=== PATIENT | male | born 1955 ===

== ENCOUNTER 2016-10-04 17:18 | Emergency (ER) | payer BC ==
[2016-10-04 17:18] VITALS: BMI 29.8
[2016-10-04 17:24] VITALS: TEMP 98.3
[2016-10-04] MEDS ORDERED: Vancomycin 1gm in NS 250ml 1 GM/250 ML BAG IVPB STA (17:55)
--- NOTE | 2016-10-04 17:55 | ED PDOC ---
Arrival/HPI - General Chief Complaint: Abnormal Skin Integrity Time Seen by Provider: 10/04/16 17:34 Historian: Patient - History of Present Illness Narrative History of Present Illness (Text): 61 M with pmh of non insulin dependant DM presents with abdominal skin infection. Pt states that he first noticed it around 10 days ago when he was at work and it was itching. 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 It than got infected. He states that it is now red, warm to touch and very painful. He denies any drainage from it. He states that this happened once before in the back of his head. He denies any headache, dizziness, f/c, sob , cp, palpitations, abd pain, n/v/d, urinary or bm changes. Time/Duration: 1 week Quality: Aching Severity Level: 7 Past Medical History - Provider Review Nursing Documentation Reviewed: Yes - Past History Past History: Non-Contributing - Infectious Disease Hx of Infectious Diseases: None - Cardiac Hx Hypertension: Yes - Pulmonary Hx Respiratory Disorders: No - Neurological Hx Neurological Disorder: No - HEENT Hx HEENT Disorder: No - Renal Hx Renal Disorder: No - Endocrine/Metabolic Hx Diabetes Mellitus Type 2: Yes (takes pills) - Hematological/Oncological Hx Blood Disorders: No - Integumentary Hx Dermatological Disorder: No - Musculoskeletal/Rheumatological Hx Musculoskeletal Disorders: No - Gastrointestinal Hx Gastrointestinal Disorders: No - Genitourinary/Gynecological Hx Genitourinary Disorders: No - Psychiatric Hx Psychophysiologic Disorder: No Hx Substance Use: No - Surgical History Hx Orthopedic Surgery: Yes (pin right leg) Other/Comment: right leg surgery with pins - Anesthesia Hx Anesthesia: Yes Hx Anesthesia Reactions: No Hx Malignant Hyperthermia: No Family/Social History - Physician Review Nursing Documentation Reviewed: Yes Family/Social History: No Known Family HX Smoking Status: Never Smoked Hx Alcohol Use: No Hx Substance Use: No Allergies/Home Meds Allergies/Adverse Reactions: Allergies No Known Allergies Allergy (Verified 05/24/15 19:48) Home Medications: Home Meds Medication Instructions Recorded Confirmed MetFORMIN [glucOPHAGE] 1,000 mg PO DAILY 10/04/16 10/04/16 Review of Systems - Physician Review All systems were reviewed & negative as marked: Yes - Review of Systems Constitutional: absent: Fevers, Night Sweats Eyes: absent: Vision Changes ENT: absent: Hearing Changes Respiratory: absent: SOB, Cough, Wheezing Cardiovascular: absent: Chest Pain, Palpitations Gastrointestinal: absent: Abdominal Pain, Diarrhea, Nausea, Vomiting Genitourinary Male: absent: Dysuria, Frequency Musculoskeletal: absent: Arthralgias, Myalgias Skin: Abscess, Cellulitis Neurological: absent: Headache, Dizziness Hemo/Lymphatic: absent: Easy Bleeding Psychiatric: absent: Anxiety, Depression Physical Exam Vital Signs Temp Pulse Resp BP Pulse Ox 10/04/16 17:23 98.3 F 103 H 16 170/105 H 99 Temperature: Afebrile Blood Pressure: Hypertensive Pulse: Tachycardic Appearance: Positive for: Well-Appearing, Non-Toxic, Comfortable Pain Distress: None Mental Status: Positive for: Alert and Oriented X 3 - Systems Exam Head: Present: Atraumatic, Normocephalic Pupils: Present: PERRL Extroacular Muscles: Present: EOMI Mouth: Present: Moist Mucous Membranes Neck: Present: Normal Range of Motion Respiratory/Chest: Present: Clear to Auscultation, Good Air Exchange. No: Respiratory Distress, Accessory Muscle Use, Wheezes Cardiovascular: Present: Regular Rate and Rhythm, Normal S1, S2. No: Murmurs Abdomen: Present: Normal Bowel Sounds. No: Tenderness, Distention, Peritoneal Signs Upper Extremity: Present: Normal Inspection. No: Cyanosis, Edema Lower Extremity: Present: Normal Inspection. No: Edema, CALF TENDERNESS Neurological: Present: GCS=15, CN II-XII Intact, Speech Normal Skin: Present: Erythematous, Induration, Abscess, Other (Anterir abd wall: 4x3cm Erythmatous, warm to touch, indurated, not fluctuant ) Psychiatric: Present: Alert, Oriented x 3, Normal Insight, Normal Concentration Medical Decision Making ED Course and Treatment: 10/04/16 18:06 Impression: 61 M with pmh of diabetes presents to the ED with anterior wall cellulites. Differential Diagnosis included but are not limited to: Cellulites Plan: - Blood sugar of 180 - 1 gram Vancomycin STAT - Outpatient antibiotics clinda & keflex and follow up with primary care tomorrow morning. -- Reassess and disposition Prior Visits: Notes and results from previous visits were reviewed. Progress Notes: - Patient hemodynamically stable and non febrile. 10/04/16 18:40 Reassessment Condition: Improving,but remains with symptoms - Medication Orders Current Medication Orders: Vancomycin HCl (Vancomycin 1gm) 1 gm in 250 mls @ 167 mls/hr IVPB STAT STA PRN Reason: Protocol Stop: 10/04/16 19:24 - PA / ACCORDION REPAIRER / Resident Statement / has reviewed & agrees with the documentation as recorded. / has examined the patient and agrees with the treatment plan. Disposition/Present on Arrival - Present on Arrival Any Indicators Present on Arrival: No History of DVT/PE: No History of Uncontrolled Diabetes: No Urinary Catheter: No History of Decub. Ulcer: No History Surgical Site Infection Following: None - Disposition Have Diagnosis and Disposition been Completed?: Yes Diagnosis: Cellulitis Disposition: HOME/ ROUTINE Disposition Time: 18:35 Patient Plan: Discharge Patient Problems: Current Active Problems Problem Status Onset Cellulitis Acute Condition: GOOD Discharge Instructions (ExitCare): Cellulitis (ED) Additional Instructions: Thank you for letting us take care of you today. Your provider was Dr. Randolph. You were treated for cellulitis. The emergency medical care you received today was directed at your acute symptoms. If you were prescribed any medication, please fill it and take as directed. It may take several days for your symptoms to resolve. Return to the Emergency Department if your symptoms worsen, do not improve, or if you have any other problems. Please contact your doctor or call one of the physicians/clinics you have been referred to that are listed on the Patient Visit Information form that is included in your discharge packet. Bring any paperwork you were given at discharge with you along with any medications you are taking to your follow up visit. Our treatment cannot replace ongoing medical care by a primary care provider (PCP) outside of the emergency department. [facility]. Follow up with your doctor tomorrow morning for re-evaluation. Prescriptions: Cephalexin [cephalexin] 500 mg PO QID #28 cap Clindamycin [Cleocin] 300 mg PO Q6 #28 cap Referrals: Luly Weathers, [Primary Care Provider] - Follow up with primary
[2016-10-04 20:27] VITALS: BP 169/100; PULSE 92; RESP 16; O2SAT 97
== END 2016-10-04 20:34 | disposition home or self-care (01) ==
LOC: ED 17:18
DX: L03.311 Cellulitis of abdominal wall (principal); E11.9 Type 2 diabetes mellitus without complications; Z79.84 Long term (current) use of oral hypoglycemic drugs

== ENCOUNTER 2018-07-28 12:37 | Inpatient (IN) | payer BC ==
[2018-07-28 13:20] VITALS: BMI 31.5
--- NOTE | 2018-07-28 13:20 | ED PDOC ---
Arrival/HPI - General Time Seen by Provider: 07/28/18 13:04 Historian: Patient - History of Present Illness Narrative History of Present Illness (Text): 07/28/18 13:19 A 63 year old male, whose past medical history includes type 2 diabetes, presents to the emergency department complaining of a nonhealing ulcer to the sole of the right foot. Patient reports he showed a picture of his foot to his employer who urged him to go to the emergency room. Patient is experiencing some discomfort but denies any fever, or any other complaints. No PMD Symptom Onset: Gradual Symptom Course: Unchanged Activities at Onset: Light Context: Work Past Medical History - Provider Review Nursing Documentation Reviewed: Yes - Past History Past History: Non-Contributing - Infectious Disease Hx of Infectious Diseases: None - Cardiac Hx Hypertension: Yes - Pulmonary Hx Respiratory Disorders: No - Neurological Hx Neurological Disorder: No - HEENT Hx HEENT Disorder: No - Renal Hx Renal Disorder: No - Endocrine/Metabolic Hx Diabetes Mellitus Type 2: Yes (takes pills) - Hematological/Oncological Hx Blood Disorders: No - Integumentary Hx Dermatological Disorder: No - Musculoskeletal/Rheumatological Hx Musculoskeletal Disorders: No - Gastrointestinal Hx Gastrointestinal Disorders: No - Genitourinary/Gynecological Hx Genitourinary Disorders: No - Psychiatric Hx Psychophysiologic Disorder: No Hx Substance Use: No - Surgical History Hx Orthopedic Surgery: Yes (pin right leg) Other/Comment: right leg surgery with pins - Anesthesia Hx Anesthesia: Yes Hx Anesthesia Reactions: No Hx Malignant Hyperthermia: No Family/Social History - Physician Review Nursing Documentation Reviewed: Yes Family/Social History: No Known Family HX Smoking Status: Never Smoked Hx Alcohol Use: No Hx Substance Use: No Allergies/Home Meds Allergies/Adverse Reactions: Allergies No Known Allergies Allergy (Verified 07/28/18 13:19) Home Medications: Home Meds Medication Instructions Recorded Confirmed MetFORMIN [glucOPHAGE] 1,000 mg PO DAILY 10/04/16 10/04/16 Review of Systems - Physician Review All systems were reviewed & negative as marked: Yes - Review of Systems Constitutional: absent: Fevers Skin: Other (right foot infection) Physical Exam Vital Signs Reviewed: Yes Temperature: Afebrile Blood Pressure: Hypertensive Pulse: Regular Respiratory Rate: Normal Appearance: Positive for: Well-Appearing, Non-Toxic Mental Status: Positive for: Alert and Oriented X 3 - Systems Exam Head: Present: Atraumatic, Normocephalic Pupils: Present: PERRL Extroacular Muscles: Present: EOMI Conjunctiva: Present: Normal Respiratory/Chest: Present: Clear to Auscultation, Good Air Exchange. No: Respiratory Distress, Accessory Muscle Use Cardiovascular: Present: Regular Rate and Rhythm, Normal S1, S2. No: Murmurs Neurological: Present: GCS=15, CN II-XII Intact, Speech Normal Skin: Present: Other (Ulcer on left 2nd toe bottom; Large ulcer base on his right foot, foul smell, exposure to bone, no purulence) Psychiatric: Present: Alert, Oriented x 3, Normal Insight, Normal Concentration Medical Decision Making ED Course and Treatment: 07/28/18 13:19 Impression: 63 year old male presenting to the emergency room complaining of a non healing ulcer on the sole of the right foot. Plan: -- EKG -- CMP -- Vancomycin -- Piperacillin -- Blood culture -- Wound culture -- Xray of right foot -- Reassess and disposition Prior Visits: Notes and results from previous visits were reviewed. Progress Notes: 07/28/18 14:[address] ortega, patient to be admitted for infected diabetic foot ulcer, rule osteo, consult to ID and dr. ramires podiatry - RAD Interpretation Narrative RAD Interpretations (Text): 07/28/18 14:34 Procedure: Xray of right foot Dictator: Nestor Levin Impression: No acute findings. Buttonhole Machine Operator: Radiologist - EKG Interpretation EKG Interpretation (Text): 07/28/18 14:35 EKG: Ordered, reviewed, and independently interpreted the EKG. Rate : 75 BPM Rhythm : NSR Interpretation : Normal QRS, LVH, no acute ST-T wave abnormalities. Interpreted by ED Physician: Yes - Scribe Statement The provider has reviewed the documentation as recorded by the Nohemy Christian All medical record entries made by the Scribe were at my direction and personally dictated by me. I have reviewed the chart and agree that the record accurately reflects my personal performance of the history, physical exam, medical decision making, and the department course for this patient. I have also personally directed, reviewed, and agree with the discharge instructions and disposition. Disposition/Present on Arrival - Present on Arrival Any Indicators Present on Arrival: No History of DVT/PE: No History of Uncontrolled Diabetes: No Urinary Catheter: No History Surgical Site Infection Following: None - Disposition Have Diagnosis and Disposition been Completed?: Yes Diagnosis: Diabetic foot infection Disposition: HOSPITALIZED Disposition Time: 14:33 Patient Plan: Admission Patient Problems: Current Active Problems Problem Status Onset Diabetic foot infection Acute Condition: STABLE
[2018-07-28] MEDS ORDERED: Piperacillin/Tazobact 3.375 gm 100 ML IVPB STA (13:22)
[2018-07-28] MEDS ORDERED: Vancomycin 500 mg Inj IVPB STA (13:22)
[2018-07-28] MEDS ORDERED: Vancomycin 1.5 GM in Sodium Chloride 0.9% 500 ML IVPB STA (13:26)
[2018-07-28 14:04] LABS: VENOUS BLOOD GAS BASE EXCESS 2.5 mmol/L (0.0-2.0); VENOUS BLOOD GAS PO2 51 mm/Hg (30-55); VENOUS BLOOD PH 7.38 (7.32-7.43)
[2018-07-28 14:07] LABS: BASO # 0.02 {null, K/mm3} (0.0-2.0); BASO % 0.2 % (0.0-3.0); EOS # 0.2 (0.0-0.7); HEMOGLOBIN 14.1 g/dL (14.0-18.0); LYMPH # 1.6 (1.2-3.4); LYMPH % 17.3 % (22.0-35.0); MEAN CORPUSCULAR HEMOGLOBIN 28.3 pg (25.0-35.0); MEAN CORPUSCULAR HGB CONC 34.5 g/dl (31.0-37.0); MONO # 0.6 (0.1-0.6); MONO % 6.6 % (1.0-6.0); RBC 4.99 {null, 10^6/uL} (3.5-6.1); RED CELL DISTRIBUTION WIDTH 13.4 % (11.5-14.5); WHITE BLOOD COUNT 9.2 {null, 10^3/uL} (4.5-11.0)
[2018-07-28 14:15] LABS: ALB/GLOB RATIO 1.2 (1.1-1.8); ALBUMIN 4.4 g/dL (3.0-4.8); ALT/SGPT 17 U/L (7-56); AST/SGOT 28 U/L (17-59); BLOOD UREA NITROGEN 26 mg/dL (7-21); CALCIUM 9.2 mg/dL (8.4-10.5); GFR NON-AFRICAN AMERICAN > 60
--- NOTE | 2018-07-28 14:19 | RAD ---
Date of service: 07/28/2018 PROCEDURE: Bilateral Feet Radiographs. HISTORY: foot sole ulcer COMPARISON: None. FINDINGS: BONES: Right Foot: Normal. No fracture. Left Foot: Normal. No fracture. JOINTS: Right Foot: Normal. No osteoarthritis. Left Foot: Normal. No osteoarthritis. SOFT TISSUES: Right Foot: Normal. Left Foot: Normal. OTHER FINDINGS: Calcaneal spurs bilaterally IMPRESSION: No acute findings
--- NOTE | 2018-07-28 16:02 | CP.PCM.HP ---
History of Present Illness - History of Present Illness History of Present Illness: Resident History & Physical for Dr. White Patient is a 63 year old male with past medical history of T2DM presenting with chief complaint of right lower extremity ulcer which began about two weeks prior. Patient states the ulcer began as an pruritic lesion that he kept scratching, and progressed to an ulcer. He has tried over the counter antibacterial creams and hydrogen peroxide with no relief. Patient also has an ulcer on the 2nd toe of his left lower extremity which has been present for 2 years. Patient regularly follows up with outpatient podiatry. 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 Patient has been noncomplaint with his diabetic medications for several months. Denies fevers, chills, chest pain, shortness of breath, abdomin al pain, diarrhea, dysuria. PMH: T2DM PSH: right knee surgery SHx: denies alcohol, tobacco, illicit drug use FHx: mother (T2DM) Home meds: Toujeo Solostar 300 units/ml 15 units SC daily, Jardiance PO 25 once daily Allergies: NKDA PMD: Dr. Israel Present on Admission - Present on Admission Any Indicators Present on Admission: No Review of Systems - Review of Systems All systems: reviewed and no additional remarkable complaints except (as stated in HPI) Past Patient History - Infectious Disease Hx of Infectious Diseases: None - Past Social History Smoking Status: Never Smoked - CARDIAC Hx Hypertension: Yes - PULMONARY Hx Respiratory Disorders: No - NEUROLOGICAL Hx Neurological Disorder: No - HEENT Hx HEENT Problems: No - RENAL Hx Chronic Kidney Disease: No - ENDOCRINE/METABOLIC Hx Diabetes Mellitus Type 2: Yes (takes pills) - HEMATOLOGICAL/ONCOLOGICAL Hx Blood Disorders: No - INTEGUMENTARY Hx Dermatological Problems: No - MUSCULOSKELETAL/RHEUMATOLOGICAL Hx Musculoskeletal Disorders: No - GASTROINTESTINAL Hx Gastrointestinal Disorders: No - GENITOURINARY/GYNECOLOGICAL Hx Genitourinary Disorders: No - PSYCHIATRIC Hx Psychophysiologic Disorder: No Hx Substance Use: No - SURGICAL HISTORY Hx Orthopedic Surgery: Yes (pin right leg) Other/Comment: right leg surgery with pins - ANESTHESIA Hx Anesthesia: Yes Hx Anesthesia Reactions: No Hx Malignant Hyperthermia: No Meds Allergies/Adverse Reactions: Allergies Allergy/AdvReac Type Severity Reaction Status Date / Time No Known Allergies Allergy Verified 07/28/18 13:19 Physical Exam - Constitutional Appears: Non-toxic, No Acute Distress - Head Exam Head Exam: ATRAUMATIC, NORMOCEPHALIC - Eye Exam Eye Exam: EOMI, Normal appearance, PERRL - ENT Exam ENT Exam: Mucous Membranes Moist - Neck Exam Neck exam: Positive for: Full Rom. Negative for: Lymphadenopathy, Tenderness - Respiratory Exam Respiratory Exam: Clear to Auscultation Bilateral, NORMAL BREATHING PATTERN. absent: Accessory Muscle Use, Rales, Rhonchi, Wheezes, Respiratory Distress - Cardiovascular Exam Cardiovascular Exam: REGULAR RHYTHM, +S1, +S2. absent: Tachycardia, Systolic Murmur - GI/Abdominal Exam GI & Abdominal Exam: Normal Bowel Sounds, Soft. absent: Distended, Firm, Guarding, Rebound, Rigid, Tenderness - Extremities Exam Extremities exam: Positive for: normal capillary refill, pedal pulses present. Negative for: tenderness Additional comments: stage III ulcer on plantar surface of right foot ulcer on 2nd toe of left foot nontender to palpation no bleeding or drainage - Neurological Exam Neurological exam: Alert, CN II-XII Intact, Oriented x3 - Psychiatric Exam Psychiatric exam: Normal Affect, Normal Mood - Skin Skin Exam: Dry, Normal Color, Warm Results - Vital Signs Recent Vital Signs: Last Vital Signs Temp 97.6 F 07/28/18 15:03 Pulse 75 07/28/18 15:03 Resp 18 07/28/18 15:03 BP 151/89 H 07/28/18 15:03 Pulse Ox 98 07/28/18 15:03 - Labs Result Diagrams: 07/28/18 13:42 07/28/18 13:42 Labs: Laboratory Results - last 24 hr 07/28/18 07/28/18 07/28/18 13:42 13:42 13:52 WBC 9.2 RBC 4.99 Hgb 14.1 Hct 40.9 L MCV 82.0 MCH 28.3 MCHC 34.5 RDW 13.4 Plt Count 264 MPV 9.0 Neut % (Auto) 73.9 H Lymph % (Auto) 17.3 L Martin % (Auto) 6.6 H Eos % (Auto) 2.0 Baso % (Auto) 0.2 Lymph # (Auto) 1.6 Martin # (Auto) 0.6 Eos # (Auto) 0.2 Baso # (Auto) 0.02 Absolute Neuts (auto) 6.80 H pO2 51 VBG pH 7.38 VBG pCO2 48.0 VBG HCO3 28.4 H VBG Total CO2 29.9 H VBG O2 Sat (Calc) 90.3 H VBG Base Excess 2.5 H VBG Potassium 4.1 Glucose 232 H Lactate 1.0 FiO2 21.0 Sodium 137 135.0 Potassium 4.1 Chloride 100 100.0 Carbon Dioxide 28 Anion Gap 13 BUN 26 H Creatinine 0.6 L Est GFR ( Amer) > 60 Est GFR (Non-Af Amer) > 60 Random Glucose 224 H Calcium 9.2 Total Bilirubin 0.6 AST 28 ALT 17 Alkaline Phosphatase 116 Total Protein 8.1 Albumin 4.4 Globulin 3.7 Albumin/Globulin Ratio 1.2 Venous Blood Potassium 4.1 Assessment & Plan - Assessment and Plan (Free Text) Assessment: Patient is a 63 year old male with past medical history of T2DM presenting with chief complaint of right lower extremity ulcer. Plan: RLE ulcer - s/p one dose of Vancomycin and Zosyn in ED - Podiatry and ID consulted. Appreciate recs. - followup blood and wound cultures - ESR, CRP, procalcitonin - Dopplers for lower extremities - RODERICK - MRI of lower extremities - LR @ 100 ccs/hr - Ceftaroline 600 mg IV Q12 - Tylenol PRN for fever - daily wound care - PT/OT eval T2DM - Hgba1c - Dietitian referral - ISS, Accuchecks Obesity - lipid panel - TSH, free T4 PPX - Lovenox 40 mg SC daily - Protonix 40 mg PO daily Case discussed with Dr. Christopher Taylor PGY-1
[2018-07-28] MEDS ORDERED: Ergocalciferol 50,000 Intl Units Cap PO SCH (18:00)
[2018-07-28 18:33] LABS: INR 1.06; PROTHROMBIN TIME 11.8 SECONDS (9.4-12.5)
[2018-07-28] MEDS: Enoxaparin 40 mg Syringe SC SCH (20:18)
[2018-07-28 20:33] LABS: URIC ACID 4.8 mg/dL (3.5-8.5)
[2018-07-28] MEDS: Ceftaroline 600 MG in Sodium Chloride 0.9% 100 ML IVPB SCH (21:03)
[2018-07-28 21:26] LABS: URINE BILIRUBIN NEGATIVE (NEGATIVE); URINE BLOOD NEGATIVE (NEGATIVE); URINE GLUCOSE (UA) 250 mg/dL (NEGATIVE); URINE LEUKOCYTE ESTERASE NEGATIVE Leu/uL (NEGATIVE); URINE UROBILINOGEN 0.2 E.U./dL (<1 E.U./dL)
[2018-07-28] MEDS: Lactated Ringer's 1,000 ML IV SCH (21:32)
[2018-07-28 22:01] LABS: BARBITURATES, UR NEGATIVE (NEGATIVE); BENZODIAZEPINES, UR NEGATIVE (NEGATIVE); OPIATES, UR NEGATIVE (NEGATIVE); PHENCYCLIDINE, UR NEGATIVE (NEGATIVE); URINE APPEARANCE CLEAR (CLEAR); URINE COLOR YELLOW (YELLOW); URINE PROTEIN NEGATIVE mg/dL (<30 mg/dL)
[2018-07-29] MEDS: Pantoprazole 40 mg EC Tab PO SCH (05:39)
[2018-07-29] MEDS: Lactated Ringer's 1,000 ML IV SCH ×2 (05:39→13:03)
[2018-07-29 08:18] LABS: BASO # 0.02 {null, K/mm3} (0.0-2.0); BASO % 0.3 % (0.0-3.0); EOS # 0.1 (0.0-0.7); HEMOGLOBIN 13.6 g/dL (14.0-18.0); LYMPH # 1.3 (1.2-3.4); MEAN CELL VOLUME 82.8 fl (80.0-105.0); MEAN CORPUSCULAR HEMOGLOBIN 27.6 pg (25.0-35.0); MEAN CORPUSCULAR HGB CONC 33.3 g/dl (31.0-37.0); MEAN PLATELET VOLUME 9.3 fl (7.0-11.0); MONO # 0.3 (0.1-0.6); MONO % 4.7 % (1.0-6.0); RBC 4.93 {null, 10^6/uL} (3.5-6.1); RED CELL DISTRIBUTION WIDTH 13.6 % (11.5-14.5); WHITE BLOOD COUNT 6.8 {null, 10^3/uL} (4.5-11.0)
[2018-07-29 08:27] LABS: ALB/GLOB RATIO 1.1 (1.1-1.8); ALT/SGPT 21 U/L (7-56); AST/SGOT 26 U/L (17-59); BILIRUBIN,DIRECT 0.3 mg/dL (0.0-0.4); BLOOD UREA NITROGEN 20 mg/dL (7-21); GFR NON-AFRICAN AMERICAN > 60; HDL CHOLESTEROL 23 mg/dL (29-60)
[2018-07-29 08:35] LABS: LDL CHOLESTEROL 127 mg/dL (0-129)
[2018-07-29] MEDS: Insulin Lispro (humaLOG) MEDIUM Coverage SC SCH ×3 (08:55→18:00)
[2018-07-29 08:58] LABS: FREE T4 1.35 ng/dL (0.78-2.19)
[2018-07-29] MEDS: Ceftaroline 600 MG in Sodium Chloride 0.9% 100 ML IVPB SCH (09:03)
[2018-07-29] MEDS: Enoxaparin 40 mg Syringe SC SCH (09:04)
--- NOTE | 2018-07-29 09:36 | CP.PCM.CON ---
<MarianaGlen - Last Filed: 07/29/18 09:32> History of Present Illness - History of Present Illness History of Present Illness: Podiatry consult note for Dr. Figueroa: 63 year old male patient with past medical history of DM II seen and evaluated for bilateral foot ulcerations. Patient states that his right foot ulcer started two weeks prior. Patient states the ulcer in the bottom of his right foot began as a blister that he kept scratching, and progressed to an ulcer. He has tried over the counter antibacterial creams and hydrogen peroxide with no relief. Patient also has an ulcer on the left 2nd toe which has been present for 2 years. Patient regularly follows up with his acute care assistant. 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 Patient states that he feels episodes of mild pain in his right foot ulcer. He states that he has episodes of tingling and numbness in his feet. Patient has been non-complaint with his diabetic medications for several months. He denies any recent fevers, chills, chest pain, shortness of breath, abdominal pain, diarrhea, dysuria. He denies any other pedal complaint at this time. PMH: DM II PSH: Right knee surgery FHx: mother (DM II) Allergies: NKDA Social Hx: denies alcohol, tobacco, illicit drug use Review of Systems - Review of Systems Review of Systems: As per HPI - Constitutional Constitutional: As Per HPI Past Patient History - Infectious Disease Hx of Infectious Diseases: None - Past Social History Smoking Status: Never Smoked - CARDIAC Hx Hypertension: Yes - PULMONARY Hx Respiratory Disorders: No - NEUROLOGICAL Hx Neurological Disorder: No - HEENT Hx HEENT Problems: No - RENAL Hx Chronic Kidney Disease: No - ENDOCRINE/METABOLIC Hx Diabetes Mellitus Type 2: Yes (takes pills) - HEMATOLOGICAL/ONCOLOGICAL Hx Blood Disorders: No - INTEGUMENTARY Hx Dermatological Problems: No - MUSCULOSKELETAL/RHEUMATOLOGICAL Hx Musculoskeletal Disorders: No - GASTROINTESTINAL Hx Gastrointestinal Disorders: No - GENITOURINARY/GYNECOLOGICAL Hx Genitourinary Disorders: No - PSYCHIATRIC Hx Psychophysiologic Disorder: No Hx Substance Use: No - SURGICAL HISTORY Hx Orthopedic Surgery: Yes (pin right leg) Other/Comment: right leg surgery with pins - ANESTHESIA Hx Anesthesia: Yes Hx Anesthesia Reactions: No Hx Malignant Hyperthermia: No Meds Allergies/Adverse Reactions: Allergies Allergy/AdvReac Type Severity Reaction Status Date / Time No Known Allergies Allergy Verified 07/28/18 13:19 - Medications Medications: Current Medications Acetaminophen (Tylenol 325mg Tab) 650 mg PO Q6 PRN PRN Reason: TEMP>=99.5F Acetaminophen (Tylenol 650 Mg Supp) 650 mg RC Q6H PRN PRN Reason: TEMP>=99.5F Docusate Sodium (Colace) 100 mg PO TID [facility] Last Admin: 07/29/18 09:02 Dose: 100 mg Enoxaparin Sodium (Lovenox) 40 mg SC DAILY [facility]; Protocol Last Admin: 07/29/18 09:04 Dose: 40 mg Ergocalciferol (Drisdol 50,000 Intl Units Cap) 1 cap PO Q7D [facility] Last Admin: 07/28/18 20:16 Dose: 1 cap Lactated Ringer's (Lactated Ringer's) 1,000 mls @ 100 mls/hr IV .Q10H [facility] Last Admin: 07/29/18 05:39 Dose: 100 mls/hr Ceftaroline Fosamil 600 mg/ (Sodium Chloride) 100 mls @ 100 mls/hr IVPB Q12 [facility]; Protocol Stop: 07/29/18 10:59 Last Admin: 07/29/18 09:03 Dose: 100 mls/hr Insulin Human Lispro (Humalog Med) 0 units SC AC [facility]; Protocol Last Admin: 07/29/18 08:55 Dose: 3 units Ondansetron HCl (Zofran Inj) 4 mg IVP Q4H PRN PRN Reason: Nausea/Vomiting Pantoprazole Sodium (Protonix Ec Tab) 40 mg PO 0600 [facility] Last Admin: 07/29/18 05:39 Dose: 40 mg Physical Exam - Constitutional Appears: Well, Non-toxic - Head Exam Head Exam: ATRAUMATIC, NORMOCEPHALIC - Extremities Exam Additional comments: B/L lower extremity focused exam: Vascular: DP/PT are 1/4 b/l, Cap refill < 3 seconds to all digits, Temp gradient warm to cool from proximal to distal, no edema appreciated to b/l extremities. Neuro: Gross sensation intact, protective sensation diminished. Derm: An ulcer noted in the plantar aspect of the 2nd MPJ on the right foot measuring 2 cm X 1.5 cm X 0.32 cm. Base is granular. Hyperkeratotic edges. Minimal serous drainage noted. No tracking, positive undermining, positive probe to bone. Mild enid-ulcerative erythema noted. Another ulcer noted in the tip of the left 2nd toe 1 cm X 1 cm X 0.2 cm. Base is granular. Hyperkeratotic edges. No drainage noted. No tracking, probing to bone or undermining. No clinical signs of active bacterial infection. MSK: Muscle power 5/5 to all groups, No Pain on palpating the enid-ulcerative areas. - Neurological Exam Neurological exam: Alert, Oriented x3 - Psychiatric Exam Psychiatric exam: Normal Affect, Normal Mood Results - Vital Signs Recent Vital Signs: Last Vital Signs Temp 98 F 07/29/18 06:00 Pulse 76 07/29/18 06:00 Resp 20 07/29/18 06:00 BP 162/89 H 07/29/18 06:00 Pulse Ox 98 07/29/18 06:00 - Labs Result Diagrams: 07/29/18 07:30 07/29/18 07:30 Labs: Laboratory Results - last 24 hr 07/28/18 07/28/18 07/28/18 13:42 13:42 13:45 WBC 9.2 RBC 4.99 Hgb 14.1 Hct 40.9 L MCV 82.0 MCH 28.3 MCHC 34.5 RDW 13.4 Plt Count 264 MPV 9.0 Neut % (Auto) 73.9 H Lymph % (Auto) 17.3 L Desha % (Auto) 6.6 H Eos % (Auto) 2.0 Baso % (Auto) 0.2 Lymph # (Auto) 1.6 Desha # (Auto) 0.6 Eos # (Auto) 0.2 Baso # (Auto) 0.02 Absolute Neuts (auto) 6.80 H ESR 69 H PT INR APTT pO2 VBG pH VBG pCO2 VBG HCO3 VBG Total CO2 VBG O2 Sat (Calc) VBG Base Excess VBG Potassium Glucose Lactate FiO2 Sodium 137 Potassium 4.1 Chloride 100 Carbon Dioxide 28 Anion Gap 13 BUN 26 H Creatinine 0.6 L Est GFR ( Amer) > 60 Est GFR (Non-Af Amer) > 60 POC Glucose (mg/dL) Random Glucose 224 H Fructosamine Lactic Acid Uric Acid Calcium 9.2 Phosphorus Magnesium Total Bilirubin 0.6 Direct Bilirubin AST 28 ALT 17 Alkaline Phosphatase 116 Total Protein 8.1 Albumin 4.4 Globulin 3.7 Albumin/Globulin Ratio 1.2 Triglycerides Cholesterol LDL Cholesterol Direct HDL Cholesterol Free T4 Thyroxine (T4) TSH 3rd Generation Venous Blood Potassium Urine Color Urine Appearance Urine pH Ur Specific [place] Urine Protein Urine Glucose (UA) Urine Ketones Urine Blood Urine Nitrate Urine Bilirubin Urine Urobilinogen Ur Leukocyte Esterase Urine Opiates Screen Urine Methadone Screen Ur Barbiturates Screen Ur Phencyclidine Scrn Ur Amphetamines Screen U Benzodiazepines Scrn U Oth Cocaine Metabols U Cannabinoids Screen 07/28/18 07/28/18 07/28/18 13:45 13:52 17:05 WBC RBC Hgb Hct MCV MCH MCHC RDW Plt Count MPV Neut % (Auto) Lymph % (Auto) Desha % (Auto) Eos % (Auto) Baso % (Auto) Lymph # (Auto) Desha # (Auto) Eos # (Auto) Baso # (Auto) Absolute Neuts (auto) ESR PT 11.8 INR 1.06 APTT 33.0 pO2 51 VBG pH 7.38 VBG pCO2 48.0 VBG HCO3 28.4 H VBG Total CO2 29.9 H VBG O2 Sat (Calc) 90.3 H VBG Base Excess 2.5 H VBG Potassium 4.1 Glucose 232 H Lactate 1.0 FiO2 21.0 Sodium 135.0 Potassium Chloride 100.0 Carbon Dioxide Anion Gap BUN Creatinine Est GFR ( Amer) Est GFR (Non-Af Amer) POC Glucose (mg/dL) 183 H Random Glucose Fructosamine Lactic Acid Uric Acid Calcium Phosphorus Magnesium Total Bilirubin Direct Bilirubin AST ALT Alkaline Phosphatase Total Protein Albumin Globulin Albumin/Globulin Ratio Triglycerides Cholesterol LDL Cholesterol Direct HDL Cholesterol Free T4 Thyroxine (T4) TSH 3rd Generation Venous Blood Potassium 4.1 Urine Color Urine Appearance Urine pH Ur Specific [place] Urine Protein Urine Glucose (UA) Urine Ketones Urine Blood Urine Nitrate Urine Bilirubin Urine Urobilinogen Ur Leukocyte Esterase Urine Opiates Screen Urine Methadone Screen Ur Barbiturates Screen Ur Phencyclidine Scrn Ur Amphetamines Screen U Benzodiazepines Scrn U Oth Cocaine Metabols U Cannabinoids Screen 07/28/18 07/28/18 07/28/18 20:04 20:04 20:04 WBC RBC Hgb Hct MCV MCH MCHC RDW Plt Count MPV Neut % (Auto) Lymph % (Auto) Desha % (Auto) Eos % (Auto) Baso % (Auto) Lymph # (Auto) Desha # (Auto) Eos # (Auto) Baso # (Auto) Absolute Neuts (auto) ESR PT INR APTT pO2 VBG pH VBG pCO2 VBG HCO3 VBG Total CO2 VBG O2 Sat (Calc) VBG Base Excess VBG Potassium Glucose Lactate FiO2 Sodium Potassium Chloride Carbon Dioxide Anion Gap BUN Creatinine Est GFR ( Amer) Est GFR (Non-Af Amer) POC Glucose (mg/dL) Random Glucose Fructosamine 387 H Lactic Acid 0.8 Uric Acid 4.8 Calcium Phosphorus Magnesium 2.1 Total Bilirubin Direct Bilirubin AST ALT Alkaline Phosphatase Total Protein Albumin Globulin Albumin/Globulin Ratio Triglycerides Cholesterol LDL Cholesterol Direct HDL Cholesterol Free T4 Thyroxine (T4) TSH 3rd Generation Venous Blood Potassium Urine Color Urine Appearance Urine pH Ur Specific [place] Urine Protein Urine Glucose (UA) Urine Ketones Urine Blood Urine Nitrate Urine Bilirubin Urine Urobilinogen Ur Leukocyte Esterase Urine Opiates Screen Urine Methadone Screen Ur Barbiturates Screen Ur Phencyclidine Scrn Ur Amphetamines Screen U Benzodiazepines Scrn U Oth Cocaine Metabols U Cannabinoids Screen 07/28/18 07/28/18 07/28/18 21:10 21:21 21:21 WBC RBC Hgb Hct MCV MCH MCHC RDW Plt Count MPV Neut % (Auto) Lymph % (Auto) Desha % (Auto) Eos % (Auto) Baso % (Auto) Lymph # (Auto) Desha # (Auto) Eos # (Auto) Baso # (Auto) Absolute Neuts (auto) ESR PT INR APTT pO2 VBG pH VBG pCO2 VBG HCO3 VBG Total CO2 VBG O2 Sat (Calc) VBG Base Excess VBG Potassium Glucose Lactate FiO2 Sodium Potassium Chloride Carbon Dioxide Anion Gap BUN Creatinine Est GFR ( Amer) Est GFR (Non-Af Amer) POC Glucose (mg/dL) 189 H Random Glucose Fructosamine Lactic Acid Uric Acid Calcium Phosphorus Magnesium Total Bilirubin Direct Bilirubin AST ALT Alkaline Phosphatase Total Protein Albumin Globulin Albumin/Globulin Ratio Triglycerides Cholesterol LDL Cholesterol Direct HDL Cholesterol Free T4 Thyroxine (T4) TSH 3rd Generation Venous Blood Potassium Urine Color Yellow Urine Appearance Clear Urine pH 6.0 Ur Specific [place] 1.025 Urine Protein Negative Urine Glucose (UA) 250 H Urine Ketones Negative Urine Blood Negative Urine Nitrate Negative Urine Bilirubin Negative Urine Urobilinogen 0.2 Ur Leukocyte Esterase Negative Urine Opiates Screen Negative Urine Methadone Screen Negative Ur Barbiturates Screen Negative Ur Phencyclidine Scrn Negative Ur Amphetamines Screen Negative U Benzodiazepines Scrn Negative U Oth Cocaine Metabols Negative U Cannabinoids Screen Negative 07/29/18 07/29/18 07/29/18 06:41 07:00 07:30 WBC 6.8 D RBC 4.93 Hgb 13.6 L Hct 40.8 L MCV 82.8 MCH 27.6 MCHC 33.3 RDW 13.6 Plt Count 264 MPV 9.3 Neut % (Auto) 74.0 H Lymph % (Auto) 19.0 L Desha % (Auto) 4.7 Eos % (Auto) 2.0 Baso % (Auto) 0.3 Lymph # (Auto) 1.3 Desha # (Auto) 0.3 Eos # (Auto) 0.1 Baso # (Auto) 0.02 Absolute Neuts (auto) 5.05 ESR PT INR APTT pO2 VBG pH VBG pCO2 VBG HCO3 VBG Total CO2 VBG O2 Sat (Calc) VBG Base Excess VBG Potassium Glucose Lactate FiO2 Sodium Potassium Chloride Carbon Dioxide Anion Gap BUN Creatinine Est GFR ( Amer) Est GFR (Non-Af Amer) POC Glucose (mg/dL) 212 H Random Glucose Fructosamine Lactic Acid Uric Acid Calcium Phosphorus Magnesium 2.0 Total Bilirubin Direct Bilirubin AST ALT Alkaline Phosphatase Total Protein Albumin Globulin Albumin/Globulin Ratio Triglycerides Cholesterol LDL Cholesterol Direct HDL Cholesterol Free T4 Thyroxine (T4) TSH 3rd Generation Venous Blood Potassium Urine Color Urine Appearance Urine pH Ur Specific [place] Urine Protein Urine Glucose (UA) Urine Ketones Urine Blood Urine Nitrate Urine Bilirubin Urine Urobilinogen Ur Leukocyte Esterase Urine Opiates Screen Urine Methadone Screen Ur Barbiturates Screen Ur Phencyclidine Scrn Ur Amphetamines Screen U Benzodiazepines Scrn U Oth Cocaine Metabols U Cannabinoids Screen 07/29/18 07/29/18 07:30 07:30 WBC RBC Hgb Hct MCV MCH MCHC RDW Plt Count MPV Neut % (Auto) Lymph % (Auto) Desha % (Auto) Eos % (Auto) Baso % (Auto) Lymph # (Auto) Desha # (Auto) Eos # (Auto) Baso # (Auto) Absolute Neuts (auto) ESR PT INR APTT pO2 VBG pH VBG pCO2 VBG HCO3 VBG Total CO2 VBG O2 Sat (Calc) VBG Base Excess VBG Potassium Glucose Lactate FiO2 Sodium 136 Potassium 4.3 Chloride 102 Carbon Dioxide 28 Anion Gap 11 BUN 20 Creatinine 0.7 L Est GFR ( Amer) > 60 Est GFR (Non-Af Amer) > 60 POC Glucose (mg/dL) Random Glucose 233 H Fructosamine Lactic Acid Uric Acid Calcium 9.0 Phosphorus 2.4 L Magnesium 2.0 Total Bilirubin 0.7 Direct Bilirubin 0.3 AST 26 ALT 21 Alkaline Phosphatase 108 Total Protein 7.5 Albumin 4.0 Globulin 3.5 Albumin/Globulin Ratio 1.1 Triglycerides 146 Cholesterol 181 LDL Cholesterol Direct 127 HDL Cholesterol 23 L Free T4 1.35 Thyroxine (T4) 6.5 TSH 3rd Generation 1.49 Venous Blood Potassium Urine Color Urine Appearance Urine pH Ur Specific [place] Urine Protein Urine Glucose (UA) Urine Ketones Urine Blood Urine Nitrate Urine Bilirubin Urine Urobilinogen Ur Leukocyte Esterase Urine Opiates Screen Urine Methadone Screen Ur Barbiturates Screen Ur Phencyclidine Scrn Ur Amphetamines Screen U Benzodiazepines Scrn U Oth Cocaine Metabols U Cannabinoids Screen Assessment & Plan - Assessment and Plan (Free Text) Assessment: 63 year old male patient with past medical history of DM II seen and evaluated for bilateral foot ulcerations. Plan: Patient seen and evaluated at the bedside with Dr. Figueroa. Discussed in detail with Dr. Figueroa Charts, labs and vitals reviewed; Afebrile, WBC 7.0. Wound culture collected and sent to lab. B/L foot 3 views X-ray; No acute findings LE RODERICK/PVR ordered. Ordered Right foot MRI. B/L LE venous duplex: Pending report. Left 2nd toe cleaned with saline and dressed using xeroform, and Mepilex. Right foot ulcer debrided using sterile suture removal kit then dressed using xeroform and DSD. Patient tolerated the ulcer debridement well with no complications Ordered bactroban to be added to the dressing starting tomorrow. PT order for Right forefoot offloading shoe. ID on board Reccs appreciated. Thank you for the consult. Podiatry will follow up the patient while in house. - Date & Time Date: 07/29/18 Time: 09:32 <Ismael Figueroa - Last Filed: 08/01/18 08:11> Meds - Medications Medications: Current Medications Acetaminophen (Tylenol 325mg Tab) 650 mg PO Q6 PRN PRN Reason: TEMP>=99.5F Acetaminophen (Tylenol 650 Mg Supp) 650 mg RC Q6H PRN PRN Reason: TEMP>=99.5F Atorvastatin Calcium (Lipitor) 40 mg PO DIN [facility] Last Admin: 07/31/18 18:04 Dose: 40 mg Docusate Sodium (Colace) 100 mg PO TID [facility] Last Admin: 07/31/18 18:04 Dose: 100 mg Enoxaparin Sodium (Lovenox) 40 mg SC DAILY [facility]; Protocol Last Admin: 07/31/18 09:17 Dose: 40 mg Ergocalciferol (Drisdol 50,000 Intl Units Cap) 1 cap PO Q7D [facility] Last Admin: 07/28/18 20:16 Dose: 1 cap Hydralazine HCl (Apresoline) 10 mg PO Q6H PRN PRN Reason: SBP>=170MMHG &/OR DBP>=95MMHG Lactated Ringer's (Lactated Ringer's) 1,000 mls @ 100 mls/hr IV .Q10H [facility] Last Admin: 08/01/18 00:00 Dose: 100 mls/hr Insulin Human Lispro (Humalog Med) 0 units SC AC [facility]; Protocol Last Admin: 07/31/18 16:21 Dose: Not Given Insulin Human NPH (Humulin N) 10 units SC ACB [facility] Last Admin: 07/31/18 09:17 Dose: 10 units Insulin Human NPH (Humulin N) 5 units SC DAILY@1745 [facility] Last Admin: 07/31/18 18:07 Dose: 5 units Losartan Potassium (Cozaar) 50 mg PO DAILY [facility] Mupirocin (Bactroban Ointment) 1 gm TOP DAILY [facility] Last Admin: 07/31/18 11:30 Dose: 1 applic Ondansetron HCl (Zofran Inj) 4 mg IVP Q4H PRN PRN Reason: Nausea/Vomiting Pantoprazole Sodium (Protonix Ec Tab) 40 mg PO 0600 [facility] Last Admin: 08/01/18 06:29 Dose: 40 mg Results - Vital Signs Recent Vital Signs: Last Vital Signs Temp 97.9 F 07/31/18 21:17 Pulse 80 07/31/18 21:17 Resp 18 07/31/18 21:17 BP 146/84 07/31/18 21:17 Pulse Ox 96 07/31/18 21:17 - Labs Result Diagrams: 07/31/18 06:40 07/31/18 06:40 Labs: Laboratory Results - last 24 hr 07/29/18 07/30/18 07/31/18 07:30 07:00 06:55 POC Glucose (mg/dL) 174 H Cardiac CRP 4.8 H PTH Intact Whole Molec 41 07/31/18 07/31/18 07/31/18 11:44 16:03 21:24 POC Glucose (mg/dL) 155 H 97 173 H Cardiac CRP PTH Intact Whole Molec 08/01/18 06:41 POC Glucose (mg/dL) 168 H Cardiac CRP PTH Intact Whole Molec Attending/Attestation - Attestation I have personally seen and examined this patient.: Yes I have fully participated in the care of the patient.: Yes I have reviewed all pertinent clinical information: Yes
[2018-07-29] MEDS ORDERED: Mupirocin 2% Ointment 15 GM TUBE TOP SCH (10:00)
[2018-07-29] MEDS: Mupirocin 2% Ointment 15 GM TUBE TOP SCH (18:00)
--- NOTE | 2018-07-29 20:44 | CON ---
DATE: 07/29/2018 LOCATION: The patient was seen earlier today in Room 569, Bed 2. CHIEF COMPLIANT: Nonhealing ulcer of his sole of his right foot from several weeks. HISTORY OF PRESENT ILLNESS: This is a 63-year-old male with past medical history significant for hypertension, diabetes, asthma, history of orthopedic surgery, who was admitted through the emergency room because of a right foot ulcer from several days. The patient denies any fevers or any chills. No nausea. No vomiting. No chest pain or shortness of breath. REVIEW OF SYSTEMS: A 12-point review of systems was performed. PAST MEDICAL HISTORY: Significant for diabetes mellitus, hypertension, and asthma. PAST SURGICAL HISTORY: Significant for right knee surgery. SOCIAL HISTORY: The patient denies any alcohol use. No tobacco use or any illicit drugs. ALLERGIES: THE PATIENT HAS NO KNOWN ALLERGIES. MEDICATIONS: At home are reviewed and include insulin. PHYSICAL EXAMINATION GENERAL: The patient is in bed. No acute distress. Answering questions appropriately VITAL SIGNS: Temperature of 98, blood pressure is 160/80, respiratory rate of 18, and heart rate of 90. HEENT: Unremarkable. NECK: Supple. LUNGS: Decreased breath sounds. HEART: Normal S1 and S2. ABDOMEN: Soft and nontender. No rebound or guarding. EXTREMITIES: Examination of the right foot reveals the patient has a clean open right foot ulcer in the sole of his right foot. On the left foot, he has a left second toe chronic changes in the tip of the second toe. LABORATORY DATA: Reveals the white count is 9.2, sed rate of 69. Chemistries reveals a BUN of 20, creatinine of 0.7. Urinalysis is noted. Microbiology is pending. X-ray of the left foot bilateral; no osteoarthritis, no acute findings. ASSESSMENT AND PLAN: This is a 63-year-old male, hypertensive, diabetic, with a right foot ulcer of the sole of this foot and an ulcer at the left second toe with no systemic symptoms at this point. I recommend MRI to rule out underlying osteomyelitis. Recommended RODERICK's to rule out underlying peripheral arterial disease. We would hold off on any antibiotics pending segovia-culture results and as those wounds look chronic with no evidence of an active infection, local wound care. We will make further recommendations pending MRI, Dopplers, and culture results. Melquiades Chavez MD [facility] # [id number]
[2018-07-29] MEDS ORDERED: Ceftaroline 600 MG in Sodium Chloride 0.9% 100 ML IVPB SCH (22:00)
[2018-07-30] MEDS: Lactated Ringer's 1,000 ML IV SCH ×3 (00:08→21:23)
[2018-07-30] MEDS: Potassium & Sodium Phosphate PO SCH ×4 (01:18→18:27)
--- NOTE | 2018-07-30 04:51 | PN ---
DATE: 07/29/2018 SUBJECTIVE: The patient is now seen in room 569, bed 2. The patient is out of bed to chair, sitting in the chair. Patient is alert, awake, responsive. The patient has a dressing on the right foot. OBJECTIVE: VITAL SIGNS: T-max 98.4-97.8; heart rate 82-83; blood pressure 162/89, 137/88, 119/73; respiration 20; O2 sat 96%. HEENT: Head examination; normocephalic, atraumatic. HEENT examination shows pink conjunctivae. Anicteric sclerae. No oropharyngeal lesion. NECK: No neck rigidity. CHEST: Kyphosis. LUNGS: Show no audible crackle, rales or wheezing. CARDIOVASCULAR: S1 and S2, regular rhythm. ABDOMEN: Soft and protuberant. Positive bowel sounds. No palpable hepatosplenomegaly. GENITALIA: Male. RECTAL: Examination is deferred. EXTREMITIES: Show no pitting edema, no calf tenderness, no Homans' sign.. Positive dressing of the right foot noted. NEUROLOGIC: Motor strength is 5/5. MUSCULOSKELETAL: Shows a body mass index of 32. Cranial nerves II-XII limited and intact. Gait examination is not tested. DIAGNOSTICS: July 29, hemoglobin and hematocrit 13.6 and 40.8, granulocytes 74. Chemistry significant for glucose of 233, phosphorus 2.4. LFTs are normal. Magnesium 2. Vitamin D 19.6. Procalcitonin level less than 0.05. Thyroid panel is negative. Urinalysis, urine drug screen negative. Right foot cultures, Staphylococcus aureus, gram-negative attila, Corynebacterium species. IMPRESSION AND PLAN: 1. Right forefoot diabetic foot ulceration of the second metatarsophalangeal joint. 2. Diabetic foot disease. 3. History of left foot diabetic ulceration. 4. Right forefoot plantar aspect diabetic foot ulceration. 5. Hypertension. 6. Morbid obesity. 7. Mild normocytic anemia with granulocytosis, elevated sedimentation rate of 69. 8. Hyperglycemia with uncontrolled insulin-requiring diabetes mellitus. 9. Mild prerenal kidney injury. 10. Elevated C-reactive protein of greater than 11. 11. Hypovitaminosis D. 12. Hypophosphatemia. 13. Glycosuria. 14. Right foot Staphylococcus aureus, gram-negative attila and Corynebacterium species, right foot diabetic foot ulceration. 15. Right foot plantar aspect ulceration with history of left foot second toe diabetic ulceration. 16. Bilateral calcaneal spurs. 17. Left ventricular hypertrophy. 18. Hyperlipidemia with elevated LDL and decreased HDL. 19. Hypophosphatemia. PLAN: At this time, the patient is evaluated by Infectious Disease and Podiatry. Repeat labs ordered. Wound cultures, blood and urine cultures ordered. Consultation, Podiatry and Infectious Disease. Diabetic education ordered. TCU evaluation ordered. MEDICATIONS: Bactroban cream to the affected area by Podiatry, Colace 100 mg three times a day, Drisdol 50,000 units weekly, Humalog medium dose sliding scale coverage a.c., NPH 10 units with breakfast, NPH 5 units with dinner, Ringer's Lactate at 100 mL an hour, Lipitor 40 mg daily, Lovenox 40 mg subcu daily, Neutra-Phos 1 packet q.i.d. four doses, Protonix 40 mg daily, Tylenol 650 mg p.o. suppository q. 6 hours p.r.n., Zofran 4 mg IV q. 4 hours p.r.n. The patient has been ordered arterial Dopplers and RODERICK indices. MRI of the right foot ordered. Incentive spirometry, consistent carbohydrate diet. DVT and GI prophylaxis ordered. The patient updated about his condition, diagnosis, test results, recommendation by all physicians involved in the care of the patient was reviewed, and the patient was explained about his medical condition, diagnosis, diagnostic testing, need for further evaluation and recommendation by consultations explained to the patient at length. All questions concerned answered. Dictated and electronically signed, not read. Sánchez White MD
[2018-07-30] MEDS: Pantoprazole 40 mg EC Tab PO SCH (06:01)
[2018-07-30] MEDS: Insulin Lispro (humaLOG) MEDIUM Coverage SC SCH ×3 (07:34→18:29)
[2018-07-30] MEDS: Insulin Human NPH 1 UNITS/0.01 ML SC SCH ×2 (07:34→18:29)
[2018-07-30 07:43] LABS: BASO # 0.02 {null, K/mm3} (0.0-2.0); BASO % 0.3 % (0.0-3.0); EOS # 0.1 (0.0-0.7); EOS % 1.6 % (1.5-5.0); HEMOGLOBIN 13.4 g/dL (14.0-18.0); LYMPH # 1.1 (1.2-3.4); MEAN CELL VOLUME 82.7 fl (80.0-105.0); MEAN CORPUSCULAR HEMOGLOBIN 27.6 pg (25.0-35.0); MEAN CORPUSCULAR HGB CONC 33.3 g/dl (31.0-37.0); MEAN PLATELET VOLUME 8.9 fl (7.0-11.0); MONO # 0.6 (0.1-0.6); MONO % 7.9 % (1.0-6.0); RBC 4.86 {null, 10^6/uL} (3.5-6.1); RED CELL DISTRIBUTION WIDTH 13.6 % (11.5-14.5); WHITE BLOOD COUNT 7.5 {null, 10^3/uL} (4.5-11.0)
--- NOTE | 2018-07-30 07:51 | CARD ---
APPROVED REPORT Date of service: 07/28/2018 EKG Measurement Heart [id number] <Conclusion> Normal sinus rhythm Voltage criteria for left ventricular hypertrophy Abnormal ECG
[2018-07-30 08:01] LABS: ALB/GLOB RATIO 1.1 (1.1-1.8); ALBUMIN 3.8 g/dL (3.0-4.8); ALT/SGPT 18 U/L (7-56); AST/SGOT 22 U/L (17-59); BILIRUBIN,DIRECT 0.3 mg/dL (0.0-0.4); BLOOD UREA NITROGEN 16 mg/dL (7-21); GFR NON-AFRICAN AMERICAN > 60
[2018-07-30] MEDS: Enoxaparin 40 mg Syringe SC SCH (10:32)
[2018-07-30] MEDS: Mupirocin 2% Ointment 15 GM TUBE TOP SCH (10:33)
--- NOTE | 2018-07-30 10:46 | CP.PCM.PN ---
<Glen Peña - Last Filed: 07/30/18 10:39> Subjective - Date & Time of Evaluation Date of Evaluation: 07/30/18 Time of Evaluation: 10:39 - Subjective Subjective: Podiatry progress note for Dr. Figueroa: 63 year old male patient seen and evaluated for bilateral foot ulcerations. Patient states that he didn't have pain in his ulcer sites since yesterday. He denies any overnight fevers, chills, chest pain, shortness of breath, abdominal pain, diarrhea, dysuria. He denies any other pedal complaint at this time. Objective - Vital Signs/Intake and Output Vital Signs (last 24 hours): Temp Pulse Resp BP Pulse Ox 98.3 F 69 20 165/88 H 99 07/30/18 06:00 07/30/18 06:00 07/30/18 06:00 07/30/18 06:00 07/30/18 06:00 Intake and Output: 07/30/18 07/30/18 06:59 18:59 Intake Total 2400 Balance 2400 - Medications Medications: Current Medications Acetaminophen (Tylenol 325mg Tab) 650 mg PO Q6 PRN PRN Reason: TEMP>=99.5F Acetaminophen (Tylenol 650 Mg Supp) 650 mg RC Q6H PRN PRN Reason: TEMP>=99.5F Atorvastatin Calcium (Lipitor) 40 mg PO DIN [facility] Last Admin: 07/29/18 18:51 Dose: 40 mg Docusate Sodium (Colace) 100 mg PO TID [facility] Last Admin: 07/30/18 10:32 Dose: 100 mg Enoxaparin Sodium (Lovenox) 40 mg SC DAILY [facility]; Protocol Last Admin: 07/30/18 10:32 Dose: 40 mg Ergocalciferol (Drisdol 50,000 Intl Units Cap) 1 cap PO Q7D [facility] Last Admin: 07/28/18 20:16 Dose: 1 cap Lactated Ringer's (Lactated Ringer's) 1,000 mls @ 100 mls/hr IV .Q10H [facility] Last Admin: 07/30/18 00:08 Dose: 100 mls/hr Insulin Human Lispro (Humalog Med) 0 units SC AC [facility]; Protocol Last Admin: 07/30/18 07:34 Dose: 3 units Insulin Human NPH (Humulin N) 10 units SC ACB [facility] Last Admin: 07/30/18 07:34 Dose: 10 units Insulin Human NPH (Humulin N) 5 units SC DAILY@1745 [facility] Mupirocin (Bactroban Ointment) 0 gm TOP BID [facility] Last Admin: 07/30/18 10:33 Dose: 1 applic Ondansetron HCl (Zofran Inj) 4 mg IVP Q4H PRN PRN Reason: Nausea/Vomiting Pantoprazole Sodium (Protonix Ec Tab) 40 mg PO 0600 [facility] Last Admin: 07/30/18 06:01 Dose: 40 mg Potassium Phos/Sodium Phos (Neutra-Phos) 1 pkt PO QID [facility] Stop: 07/30/18 18:01 Last Admin: 07/30/18 10:32 Dose: 1 pkt - Labs Labs: 07/30/18 07:00 07/30/18 07:00 PT 11.8 SECONDS (9.4-12.5) 07/28/18 13:45 INR 1.06 07/28/18 13:45 APTT 33.0 Seconds (26.9-38.3) 07/28/18 13:45 - Constitutional Appears: Well, Non-toxic, No Acute Distress - Head Exam Head Exam: ATRAUMATIC, NORMOCEPHALIC - Extremities Exam Additional comments: B/L lower extremity focused exam: Vascular: DP/PT are 1/4 b/l, Cap refill < 3 seconds to all digits, Temp gradient warm to cool from proximal to distal, no edema appreciated to b/l extremities. Neuro: Gross sensation intact, protective sensation diminished. Derm: Right foot: An ulcer noted in the plantar aspect of the 2nd MPJ on the right foot measuring 2 cm X 1.5 cm X 0.3 cm. Base is granular. Hyperkeratotic edges. Minimal serous drainage noted. No tracking, positive undermining, positive probe to bone. Mild enid-ulcerative erythema noted. A second ulcer noted in the dorsal aspect of the 2nd met on the right foot measuring 1.5 cm X 1.0 cm X 0.1 cm. Base is fibronecrotic. Minimal serous drainage noted. No tracking, undermining, OR probe to bone. Mild enid-ulcerative erythema noted. Left foot: An ulcer noted in the tip of the left 2nd toe 1 cm X 1 cm X 0.2 cm. Base is granular. Hyperkeratotic edges. No drainage noted. No tracking, probing to bone or undermining. No clinical signs of active bacterial infection. MSK: Muscle power 5/5 to all groups, No Pain on palpating the enid-ulcerative areas. - Neurological Exam Neurological Exam: Alert, Awake, Oriented x3 - Psychiatric Exam Psychiatric exam: Normal Affect, Normal Mood Assessment and Plan - Assessment and Plan (Free Text) Assessment: 63 year old male patient seen and evaluated for bilateral foot ulcerations. Plan: Patient seen and evaluated at the bedside. Discussed in detail with Dr. Figueroa Charts, labs and vitals reviewed; Afebrile, WBC 7.0. Wound culture from the left 2nd toe collected and sent to lab. Wound culture from the Right foot: Gram negative rods, Corynebacterium species, Staph aureus. B/L foot 3 views X-ray; No acute findings LE RODERICK/PVR: pending. Right foot MRI couldn't be done as the patient have IM attila. Ordered bone scan. B/L LE venous duplex: Pending report. Left 2nd toe cleaned with saline and dressed using xeroform, and DSD. Right foot ulcers dressed using bactroban and DSD. PT order for Right forefoot offloading shoe. Ordered surgical shoe for the left foot. ID on board Reccs appreciated. Podiatry will continue to follow up the patient while in house. <Ismael Figueroa - Last Filed: 08/01/18 08:09> Objective - Vital Signs/Intake and Output Vital Signs (last 24 hours): Temp Pulse Resp BP Pulse Ox 97.9 F 80 18 146/84 96 07/31/18 21:17 07/31/18 21:17 07/31/18 21:17 07/31/18 21:17 07/31/18 21:17 Intake and Output: 08/01/18 08/01/18 06:59 18:59 Intake Total 3020 Balance 3020 - Medications Medications: Current Medications Acetaminophen (Tylenol 325mg Tab) 650 mg PO Q6 PRN PRN Reason: TEMP>=99.5F Acetaminophen (Tylenol 650 Mg Supp) 650 mg RC Q6H PRN PRN Reason: TEMP>=99.5F Atorvastatin Calcium (Lipitor) 40 mg PO DIN [facility] Last Admin: 07/31/18 18:04 Dose: 40 mg Docusate Sodium (Colace) 100 mg PO TID [facility] Last Admin: 07/31/18 18:04 Dose: 100 mg Enoxaparin Sodium (Lovenox) 40 mg SC DAILY [facility]; Protocol Last Admin: 07/31/18 09:17 Dose: 40 mg Ergocalciferol (Drisdol 50,000 Intl Units Cap) 1 cap PO Q7D [facility] Last Admin: 07/28/18 20:16 Dose: 1 cap Hydralazine HCl (Apresoline) 10 mg PO Q6H PRN PRN Reason: SBP>=170MMHG &/OR DBP>=95MMHG Lactated Ringer's (Lactated Ringer's) 1,000 mls @ 100 mls/hr IV .Q10H [facility] Last Admin: 08/01/18 00:00 Dose: 100 mls/hr Insulin Human Lispro (Humalog Med) 0 units SC AC [facility]; Protocol Last Admin: 07/31/18 16:21 Dose: Not Given Insulin Human NPH (Humulin N) 10 units SC ACB [facility] Last Admin: 07/31/18 09:17 Dose: 10 units Insulin Human NPH (Humulin N) 5 units SC DAILY@1745 [facility] Last Admin: 07/31/18 18:07 Dose: 5 units Losartan Potassium (Cozaar) 50 mg PO DAILY [facility] Mupirocin (Bactroban Ointment) 1 gm TOP DAILY [facility] Last Admin: 07/31/18 11:30 Dose: 1 applic Ondansetron HCl (Zofran Inj) 4 mg IVP Q4H PRN PRN Reason: Nausea/Vomiting Pantoprazole Sodium (Protonix Ec Tab) 40 mg PO 0600 [facility] Last Admin: 08/01/18 06:29 Dose: 40 mg - Labs Labs: 07/31/18 06:40 07/31/18 06:40 PT 11.8 SECONDS (9.4-12.5) 07/28/18 13:45 INR 1.06 07/28/18 13:45 APTT 33.0 Seconds (26.9-38.3) 07/28/18 13:45 Attending/Attestation - Attestation I have personally seen and examined this patient.: Yes I have fully participated in the care of the patient.: Yes I have reviewed all pertinent clinical information, including history, physical exam and plan: Yes
--- NOTE | 2018-07-30 15:14 | US ---
HISTORY: Leg pain and swelling. Evaluate for DVT PHYSICIAN(S): Missael Kent MD. TECHNIQUE: Duplex sonography and color-flow Doppler with graded compression were used to evaluate the deep venous systems of both lower extremities. FINDINGS: The visualized deep venous systems of both lower extremities are sonographically normal and compressible. Normal wave forms and augmentation are seen. There is no sonographic evidence for deep venous thrombosis in the visualized segments of both lower extremities. IMPRESSION: No sonographic evidence for deep venous thrombosis in the visualized segments of both lower extremities.
--- NOTE | 2018-07-30 18:14 | PN ---
DATE: 07/30/2018 SUBJECTIVE: The patient is in bed, in no acute distress, nontoxic. OBJECTIVE: VITAL SIGNS: On exam, temperature is 98, blood pressure is 160/80, respiratory rate 20. HEENT: Unremarkable. NECK: Supple. LUNGS: Have decreased breath sounds. HEART: Normal S1, S2. ABDOMEN: Soft, nontender. LABORATORY EXAMINATION: Reveals a white count of 7.5, hemoglobin of 13, platelets of 244. Chemistries reveals a BUN of 16, creatinine of 0.7. Procalcitonin is less than 0.05. Urinalysis is noted and toxicology is reviewed. Microbiology reveals Staph aureus and a gram-negative attila from the wound and the first culture from the right foot from 07/28 shows MRSA and Proteus and Corynebacterium. Review of orders reveals the patient to be off of antibiotics. progress note is reviewed from today. ASSESSMENT AND PLAN: This is a 63-year-old male with hypertension and diabetes, asthma, who was admitted because of right foot ulcer at the sole of his right foot in the left second toe, growing methicillin-resistant Staphylococcus aureus, Corynebacterium and Proteus. No evidence of infection on his open clean ulcer unless there is underlying osteomyelitis. Currently off of antibiotics. We will discuss with Podiatry. The patient scheduled for an MRI and a bone scan ordered by . We will follow with you. Local wound care. Melquiades Chavez MD
--- NOTE | 2018-07-30 23:49 | PN ---
DATE: 07/30/2018 SUBJECTIVE: The patient was seen sitting up in the chair in room 569, bed 1. The patient is awake, sitting, alert, awake, responsive. REVIEW OF SYSTEMS: A 14-system review was done, pertinent positive and negative dictated above. PHYSICAL EXAMINATION: VITAL SIGNS: T-max 98.3, heart rate 80, blood pressure was elevated as per the patient's nurse. In the last 24 hours, the patient's blood pressures peaked up to 170/104, 158/96, 155/95, 160/80. The patient was given a dose of hydralazine 10 mg and the patient was started on Norvasc 5 mg daily, blood pressure came down to 148/70, respiratory rate 18-20, O2 sat has been 96-99%. GENERAL: The patient is seen sitting up in the chair. HEENT: Head is normocephalic and atraumatic. Puryear conjunctivae. Anicteric sclerae. No oropharyngeal lesion. NECK: No neck rigidity. CHEST: Kyphosis. LUNGS: Shows no audible crackle, rales or wheezing. CARDIOVASCULAR: S1 and S2, regular rhythm. ABDOMEN: Protuberant, obese. Positive bowel sound. GENITALIA: Male. RECTAL: Examination is deferred. EXTREMITIES: Shows positive right foot dressing, multiple skin lesions of bilateral lower extremity noted. MUSCULOSKELETAL: Examination shows a body mass index of 32. NEUROLOGIC: The patient is alert, awake, and oriented x3. Cranial nerves II through XII intact. Gait examination is not tested. VASCULAR: Palpable decreased pulses. DIAGNOSTIC DATA: On 07/30/2018; hemoglobin/hematocrit 13.4 and 40.2 and platelets , and granulocytes 75%. ESR is down to 45 from 69. Fingerstick blood sugar 137, 234, 219, 209, 193. Sodium 136, potassium 4.2, chloride 103, CO2 of 27, anion gap 11, BUN 16, creatinine 0.7, GFR greater than 60, glucose 219, calcium 9.0, phosphorus 2.9, and magnesium 2.0. LFTs are normal. C-reactive protein is 4.80 down from 11.46. Vitamin D 25-hydroxy 19.6. Cholesterol 181, LDL 127, and HDL 23 which is low. Thyroid profile is within normal limit. Procalcitonin level is 0.05. Urine drug screen is negative. The patient is growing MRSA and gram-negative attila, Proteus mirabilis and Corynebacterium from the right foot. IMPRESSION AND PLAN: 1. Methicillin-resistant Staphylococcus aureus, Proteus mirabilis, gram-negative attila and Corynebacterium species, right diabetic foot ulceration with possible and clinical osteomyelitis. 2. History of the left foot diabetic ulceration. 3. Right foot plantar aspect second metacarpophalangeal joint ulceration with hyperkeratotic edges and enid-ulcerative erythema. 4. History of left foot ulceration. 5. Hypertension, mildly uncontrolled. 6. Normocytic anemia with granulocytosis. 7. Elevated erythrocyte sedimentation rate of 69 and 45. 8. Hyperglycemia with uncontrolled insulin-requiring diabetes mellitus with hyperglycemia and hemoglobin A1c of 11 and fructosamine of 387. 9. Elevated C-reactive protein of 11.4 down to 4.8. 10. Hypovitaminosis D. 11. Hyperlipidemia with elevated LDL. 12. Glycosuria. 13. Bilateral calcaneal spur. 14. Hypertensive cardiovascular disease with left ventricular hypertrophy. 15. Constipation. 16. Hypertension. Plan at this time, the patient has been ordered repeat labs. Consultation with Infectious Disease and Podiatry. Current medication hydralazine 10 mg p.o. every 6 hours p.r.n., Bactroban cream to the affected area, Colace 100 mg three times a day, Cozaar 25 mg daily, Drisdol 50,000 units weekly, Humalog medium dose sliding scale with NPH 10 units with breakfast and 5 units with supper, Ringer's lactate at 100 mL an hour, Lipitor 40 mg daily, Lovenox 40 mg subcu daily, Protonix 40 mg daily, Tylenol 650 mg p.o. suppository every 6 hours p.r.n., and Zofran 4 mg IV every 4 hours p.r.n. RODERICK indices ordered. Arterial Doppler is pending. MRI of the right foot is still pending. Bone scan of the right foot is still pending. Echo with Doppler is pending.. The patient has been ordered out of bed physical therapy and occupational therapy. The patient's arterial Dopplers were ordered for some reason, it has fallen off, that has been reordered. The patient is awaiting MRI, bone scan, arterial Doppler of the lower extremity, and RODERICK indices at present. The patient has been updated about his condition, diagnosis, treatment plan, management plan, need for further diagnostic therapeutic intervention and further treatment dependent upon the MRI and the bone scan results. Dictated and electronically signed, not read. Sánchez White MD
[2018-07-31] MEDS: Pantoprazole 40 mg EC Tab PO SCH (05:37)
[2018-07-31 07:07] LABS: BASO # 0.02 {null, K/mm3} (0.0-2.0); BASO % 0.3 % (0.0-3.0); EOS # 0.2 (0.0-0.7); HEMOGLOBIN 13.6 g/dL (14.0-18.0); LYMPH # 1.4 (1.2-3.4); LYMPH % 18.1 % (22.0-35.0); MEAN CELL VOLUME 82.5 fl (80.0-105.0); MEAN CORPUSCULAR HEMOGLOBIN 27.6 pg (25.0-35.0); MEAN CORPUSCULAR HGB CONC 33.5 g/dl (31.0-37.0); MEAN PLATELET VOLUME 8.9 fl (7.0-11.0); MONO # 0.6 (0.1-0.6); MONO % 7.6 % (1.0-6.0); RBC 4.92 {null, 10^6/uL} (3.5-6.1); RED CELL DISTRIBUTION WIDTH 13.5 % (11.5-14.5); WHITE BLOOD COUNT 7.9 {null, 10^3/uL} (4.5-11.0)
[2018-07-31 07:21] LABS: ALB/GLOB RATIO 1.1 (1.1-1.8); ALBUMIN 3.8 g/dL (3.0-4.8); ALT/SGPT 18 U/L (7-56); AST/SGOT 24 U/L (17-59); BILIRUBIN,DIRECT 0.2 mg/dL (0.0-0.4); BLOOD UREA NITROGEN 17 mg/dL (7-21); GFR NON-AFRICAN AMERICAN > 60
[2018-07-31] MEDS: Insulin Lispro (humaLOG) MEDIUM Coverage SC SCH ×3 (09:16→16:21)
[2018-07-31] MEDS: Enoxaparin 40 mg Syringe SC SCH (09:17)
[2018-07-31] MEDS: Insulin Human NPH 1 UNITS/0.01 ML SC SCH ×2 (09:17→18:07)
[2018-07-31] MEDS: Mupirocin 2% Ointment 15 GM TUBE TOP SCH (11:30)
--- NOTE | 2018-07-31 11:47 | PN ---
DATE: 07/31/2018 SUBJECTIVE: The patient is in bed, in no acute distress. The patient is seen earlier today. PHYSICAL EXAMINATION: VITAL SIGNS: Temperature 97, blood pressure 160/90, respiratory rate 20, and heart rate 76. HEENT: Unremarkable. NECK: Supple. LUNGS: Have decreased breath sounds. HEART: Normal S1 and S2. ABDOMEN: Soft. LABORATORY DATA: Examination reveals a white count of 7.9 and hemoglobin of 13. The patient's sed rate is 45. The chemistry reveals a BUN of 17 and creatinine of 0.7. C-reactive protein is 4.8. Urinalysis is noted and toxicology is reviewed. Microbiology reveals MRSA and Proteus and Corynebacterium. MEDICATIONS: Review of orders reveals the patient to be off of antibiotics. Dr. White's note is reviewed. ASSESSMENT AND PLAN: This is a 63-year-old male with hypertension, diabetes, asthma, admitted because of right foot ulcer and sole of the right foot with multiple organisms. No evidence of infection or an open ulcer, must rule out underlying osteomyelitis. Awaiting for imaging to determine. As the patient has osteo, MRI and bone scan both have been ordered. We will follow with you. Off of antibiotics. Melquiades Chavez MD
--- NOTE | 2018-07-31 12:50 | CP.PCM.PN ---
Subjective - Date & Time of Evaluation Date of Evaluation: 07/31/18 Time of Evaluation: 12:50 - Subjective Subjective: Podiatry progress note: Dr. Linda 63 year old male patient, seen and evaluated bedside today for B/L foot ulcerations. Patient resting comfortably in chair bedside and in NAD. He denies pain to ulceration site at this time. No additional acute pedal complaints at this time. Denies nausea/vomiting/fever/shortness of breath/chest pain. Objective - Vital Signs/Intake and Output Vital Signs (last 24 hours): Temp Pulse Resp BP Pulse Ox 97.7 F 76 20 160/90 H 95 07/31/18 06:00 07/31/18 06:00 07/31/18 06:00 07/31/18 09:16 07/31/18 06:00 Intake and Output: 07/31/18 07/31/18 06:59 18:59 Intake Total 260 Balance 260 - Medications Medications: Current Medications Acetaminophen (Tylenol 325mg Tab) 650 mg PO Q6 PRN PRN Reason: TEMP>=99.5F Acetaminophen (Tylenol 650 Mg Supp) 650 mg RC Q6H PRN PRN Reason: TEMP>=99.5F Atorvastatin Calcium (Lipitor) 40 mg PO DIN [facility] Last Admin: 07/30/18 18:27 Dose: 40 mg Docusate Sodium (Colace) 100 mg PO TID [facility] Last Admin: 07/31/18 09:15 Dose: 100 mg Enoxaparin Sodium (Lovenox) 40 mg SC DAILY [facility]; Protocol Last Admin: 07/31/18 09:17 Dose: 40 mg Ergocalciferol (Drisdol 50,000 Intl Units Cap) 1 cap PO Q7D [facility] Last Admin: 07/28/18 20:16 Dose: 1 cap Hydralazine HCl (Apresoline) 10 mg PO Q6H PRN PRN Reason: SBP>=170MMHG &/OR DBP>=95MMHG Lactated Ringer's (Lactated Ringer's) 1,000 mls @ 100 mls/hr IV .Q10H [facility] Last Admin: 07/30/18 21:23 Dose: 100 mls/hr Insulin Human Lispro (Humalog Med) 0 units SC AC [facility]; Protocol Last Admin: 07/31/18 09:16 Dose: 1 units Insulin Human NPH (Humulin N) 10 units SC ACB [facility] Last Admin: 07/31/18 09:17 Dose: 10 units Insulin Human NPH (Humulin N) 5 units SC DAILY@1745 [facility] Last Admin: 07/30/18 18:29 Dose: 5 units Losartan Potassium (Cozaar) 25 mg PO DAILY [facility] Last Admin: 07/31/18 09:16 Dose: 25 mg Mupirocin (Bactroban Ointment) 1 gm TOP DAILY [facility] Ondansetron HCl (Zofran Inj) 4 mg IVP Q4H PRN PRN Reason: Nausea/Vomiting Pantoprazole Sodium (Protonix Ec Tab) 40 mg PO 0600 [facility] Last Admin: 07/31/18 05:37 Dose: 40 mg - Labs Labs: 07/31/18 06:40 07/31/18 06:40 PT 11.8 SECONDS (9.4-12.5) 07/28/18 13:45 INR 1.06 07/28/18 13:45 APTT 33.0 Seconds (26.9-38.3) 07/28/18 13:45 - Constitutional Appears: Non-toxic, No Acute Distress - Head Exam Head Exam: ATRAUMATIC, NORMOCEPHALIC - Extremities Exam Additional comments: B/L lower extremity focused exam: Vascular: DP/PT are 1/4 b/l, Cap refill < 3 seconds to all digits, Temp gradient warm to warm from proximal to distal, no edema appreciated to b/l extremities. Ortho: MMT 5/5 in all compartments, no pain with palpation of ulceration sites Neuro: Gross sensation intact, protective sensation diminished. Derm: RLE: Ulceration noted to plantar aspect of 2nd MTPJ measuring approximately 1.5 x 1.5 x.3 cm with granular base. Hyperkeratotic border with xerosis appreciated. No drainage, no purulence, no undermining, no tracking, no probe to bone appreciated. Additional ulceration appreciated to dorsal aspect of forefoot measuring approximately 1.5 x 1 x .1 cm with fibrotic base. No drainage, no purulence, no undermining, no tunneling, no tracking appreciate. Mild erythema noted enid-wound LLE: Ulceration noted to plantar aspect of 2nd digit measuring approximately 1 cm x .5 cm x .2 cm with granular base. Hyperkeratotic border with xerosis appreciated. No drainage, no purulence, no tracking, no tunneling, no probe to bone. no clinical signs of infection appreciated. - Neurological Exam Neurological Exam: Alert, Awake Assessment and Plan - Assessment and Plan (Free Text) Assessment: 63 year old male patient with bilateral foot ulcerations.; stable Plan: Patient seen and evaluated Discussed in patient in detail with Dr. Linda Afebrile, WBC 7.9 R foot wound cx; MRSA, proteus L foot wound cx; MRSA, proteus, cornybacterium B/L foot xrays; no acute finding LE RODERICK/PVR LE US; no evidence of DVT Local wound care; b/l ulcerations cleansed with saline, and dressed with bactroban and DSD Patient to WBAT in surgical shoe (left) and offloading shoe (right) ID consulted; reccs appreciated Will continue to follow while in house
--- NOTE | 2018-07-31 15:29 | CARD ---
APPROVED REPORT Date of service: 07/31/2018 EXAM: Two-dimensional and M-mode echocardiogram with Doppler and color Doppler. INDICATION Hypertension/HCVD 2D DIMENSIONS Left Atrium (2D)3.8 (1.6-4.0cm)IVSd1.2 (0.7-1.1cm) LVDd4.5 (3.9-5.9cm)PWd1.2 (0.7-1.1cm) LVDs3.4 (2.5-4.0cm)FS (%) 25.6 % LVEF (%)50.4 (>50%) M-Mode DIMENSIONS Aortic Root2.90 (2.2-3.7cm)Aortic Cusp Exc.1.60 (1.5-2.0cm) Aortic Valve AoV Peak Hglusoqz402.0cm/Kristina Peak GR.7mmHg Mitral Valve MV E Sggszofi96.6cm/sMV A Mvymfetx541.0cm/sE/A ratio0.7 TDI E/Lateral E'0.0E/Medial E'0.0 Tricuspid Valve TR Peak Xifmeghq365na/sRAP [id number] Peak Gr.7mmHg [id number] LEFT VENTRICLE The left ventricle is normal size. There is normal left ventricular wall thickness. Left ventricle systolic function is borderline. There is normal LV segmental wall motion. Transmitral Doppler flow pattern is Grade I-abnormal relaxation pattern. RIGHT VENTRICLE The right ventricle is normal size. There is normal right ventricular wall thickness. The right ventricular systolic function is normal. ATRIA The left atrium size is normal. The right atrium size is normal. AORTIC VALVE The aortic valve is severely thickened.Please Clinically correlate No aortic regurgitation is present. There is no aortic valvular stenosis. MITRAL VALVE The mitral valve is mildly thickened. There is no mitral valve regurgitation noted. There is no mitral valve stenosis. TRICUSPID VALVE There is trace tricuspid regurgitation. PULMONIC VALVE There is no pulmonic valvular regurgitation. GREAT VESSELS The aortic root is normal in size. PERICARDIAL EFFUSION There is a trace pericardial effusion. <Conclusion> There is normal left ventricular wall thickness. Left ventricle systolic function is borderline. There is normal LV segmental wall motion. Transmitral Doppler flow pattern is Grade I-abnormal relaxation pattern. The aortic valve is severely thickened.Please Clinically correlate
--- NOTE | 2018-07-31 17:09 | NM ---
Date of service: 07/31/2018 PROCEDURE: Three-phase bone scan. HISTORY: Right foot ulcer. R/O OM. COMPARISON: 07/28/2018. Bilateral foot radiographs TECHNIQUE: Following administration of 25.8 miCu of Tc MDP three-phase bone scan performed with particular attention directed to the right foot FINDINGS: Flow component: Increased flow to the right foot compared to left. Focal area of increased flow/perfusion at the level tarsal bones possibly 3rd cuneiform Blood pool component: Focal accumulation of radionuclide at the site of increased flow. Delayed images at 3:00: Retention of radionuclide at the level of the distal tarsal bones. Other findings: Degenerative changes identified in both feet. IMPRESSION: Positive 3 phase bone scan, the area of anatomic abnormalities appear at the level of the tarsal bones right foot.
--- NOTE | 2018-07-31 17:44 | US ---
PROCEDURE: Lower extremity RODERICK exam HISTORY: Peripheral vascular disease with pain and ulceration. Diabetes.. PHYSICIAN(S): Missael Kent MD. FINDINGS: The resting RODERICK's are relatively normal: Right, 0.96 and left, 1.12. However, comparing with the distal waveforms, the resting ABIs may be inaccurate due to distal calcification The brachial systolic pressures are symmetric. The high thigh pressures and waveforms are relatively normal. The calf PVR waveforms augment normally. No significant gradients are noted across the thighs. The right ankle and metatarsal waveforms are moderately blunted. The right ankle and metatarsal waveforms are mildly blunted. IMPRESSION: 1. Relatively normal ABIs at rest. However the ABIs may be inaccurate due to calcified distal vessels. 2. Bilateral tibial disease, greater on the right than the left
--- NOTE | 2018-07-31 23:28 | PN ---
DATE: 07/31/2018 SUBJECTIVE: The patient is seen in the ultrasound room area where the patient is getting his ultrasound and arterial Doppler. Overnight nurse's notes were reviewed. PHYSICAL EXAMINATION VITAL SIGNS: T-max 97.9, pulse 80, blood pressure 146/84, 160/90,160/93, 163/90, 142/84, respiration 18 to 20, O2 sat 95%. HEENT: The patient's head examination normocephalic, atraumatic. HEENT examination shows pink conjunctivae. Anicteric sclerae. No oropharyngeal lesion. NECK: No neck rigidity. CHEST: Kyphosis. CARDIOPULMONARY: S1, S2, regular rhythm. LUNGS: Shows no audible crackle, rales or wheezing. ABDOMEN: Soft, protuberant. Positive bowel sound. GENITALIA: Male. RECTAL: Deferred. EXTREMITIES: Shows chronic and multiple skin lesions of both legs anteriorly. Positive right foot dressing. MUSCULOSKELETAL: Shows a body mass index of 33. NEUROLOGIC: Gait examination is not tested. Motor strength is 5/5 of lower extremity. LABORATORY DATA: From 07/31/2018, hemoglobin/hematocrit 13.6 and 40.6, granulocytes 72. Sodium 138, potassium 4.2, chloride 103, CO2 of 29, anion gap 10, BUN 17, creatinine 0.7, GFR greater than 60, glucose 173, 97, 155, 174, 182; hemoglobin A1c 10.9, fructosamine 387. Vitamin D 19.6. C-reactive protein 11.46. Cultures are growing MRSA and Proteus mirabilis of the right foot. Bone scan; three-phase bone scan, which shows increased flow to the right foot compared to the left with focal areas of increased flow perfusion at the level of the tarsal bone, possibly third cuneiform. Blood pool component shows accumulation of the nuclide at the site of the increased flow, delayed images at 3 hours retention of the radionuclide at the level of the distal tarsal bone. Bone scan conclusion was positive three-phase bone scan and the AVN at the level of the tarsal bone of the right foot and cuneiform bone with degenerative joint disease of both feet. Arterial Doppler shows bilateral tibial disease, right more than the left. Echocardiogram shows ejection fraction 50% with a borderline left ventricular systolic function and grade 1 abnormal relaxation pattern. Severely thickened aortic valve. CURRENT MEDICATIONS: Hydralazine 10 mg p.o. every 6 hours p.r.n., Bactroban cream to the affected area, Colace 100 mg three times a day, Cozaar increased to 50 mg daily, Drisdol 50,000 units weekly, Humalog medium dose sliding scale coverage a.c., NPH 10 units with breakfast and NPH 5 units with supper, Ringer's lactate at 100 mL an hour, Lipitor 40 mg daily, Lovenox 40 mg subcu daily, Protonix 40 mg daily, Tylenol suppository p.o. every 6 hours p.r.n., Zofran 4 mg IV every 4 hours p.r.n. IMPRESSION 1. Right foot methicillin-resistant Proteus mirabilis and Corynebacterium species right foot diabetic ulceration with positive three-phase bone scan with increased uptake at the level of the tarsal bone and third cuneiform. 2. Degenerative joint disease of both feet. 3. Bilateral tibial disease, right more than the left with ankle-brachial index of 0.96 on the right and 1.12 on the left. 4. Hypertension. 5. Questionable cardiomyopathy with ejection fraction of 50% and borderline left ventricular systolic function. 6. Grade 1 abnormal relaxation pattern. 7. Severely thickened aortic valve. 8. Anemia. 9. Granulocytosis. 10. Elevated erythrocyte sedimentation rate of 69 and 45. 11. Uncontrolled insulin-requiring diabetes mellitus with hemoglobin A1c of 11 and fructosamine of 387. 12. Elevated high sensitivity C-reactive protein of greater than 11. 13. Hypovitaminosis D. 14. Hyperglycemia. 15. Glycosuria. 16. Morbid obesity with elevated body mass index of 33. 17. Mild normocytic anemia with granulocytosis. 18. Hypercholesterolemia with elevated LDL and decreased HDL. PLAN: At this time, the patient is awaiting further recommendations from Infectious Disease. The patient is awaiting for the MRI of the foot. The patient is awaiting further recommendation by Podiatry. The patient's MRI of the foot is pending. Physical therapy, occupational therapy ordered. The patient's further management will be dependent upon the findings of the MRI because the bone scan is abnormal, but in a different area. ADDENDUM: In view of the patient's abnormal echocardiogram, we will request a Cardiology evaluation with outpatient cardiology followup. Dictated and electronically signed, not read. Sánchez MD Christopher
[2018-08-01] MEDS: Lactated Ringer's 1,000 ML IV SCH
[2018-08-01] MEDS: Pantoprazole 40 mg EC Tab PO SCH (06:29)
[2018-08-01] MEDS: Insulin Lispro (humaLOG) MEDIUM Coverage SC SCH ×2 (08:33→17:29)
[2018-08-01 08:34] VITALS: RESP 20
[2018-08-01] MEDS: Enoxaparin 40 mg Syringe SC SCH (10:07)
[2018-08-01] MEDS: Mupirocin 2% Ointment 15 GM TUBE TOP SCH (10:11)
--- NOTE | 2018-08-01 10:13 | CT ---
Date of service: 08/01/2018 PROCEDURE: CT right foot HISTORY: r/o osteomyelitis COMPARISON: Not available TECHNIQUE: 2.5 mm contiguous axial sections were acquired through the right foot. Sagittal and coronal images were reformatted from the axial scan. Total exam DLP: 299.37 mGy-cm. This CT exam was performed using 1 or more of the following dose reduction techniques: Automated exposure control, adjustment of the mA and/or kV according to patient size, and/or use of iterative reconstruction technique. FINDINGS: There is no acute fracture. There is no osseous erosion or periosteal reaction appreciated. The joint spaces and articular surfaces are preserved. There is soft tissue swelling seen over the dorsal aspect of the foot, particularly over the midfoot, laterally. No soft tissue mass or fluid collection is identified. IMPRESSION: No evidence of osteomyelitis. Please note that this is an insensitive examination for osteomyelitis and if there is i continued clinical suspicion then evaluation with magnetic resonance imaging is advised. Note that soft tissue swelling is noted over the dorsal aspect of the foot. This is nonspecific.
--- NOTE | 2018-08-01 11:59 | CP.PCM.PN ---
Subjective - Date & Time of Evaluation Date of Evaluation: 08/01/18 Time of Evaluation: 11:56 - Subjective Subjective: Podiatry Progress Note: Dr. Figueroa 63 year old male patient, seen and evaluated at bedside with Dr. Figueroa. Patient resting comfortably and in NAD. Per chart, no acute events overnight. Patient states that he does not have any pain to b/l feet at this time. Patient ambulating in forefoot offloading shoe on the right. Denies nausea/ vomiting/fever/shortness of breath/chest pain. Objective - Vital Signs/Intake and Output Vital Signs (last 24 hours): Temp Pulse Resp BP Pulse Ox 98.2 F 74 20 134/80 98 08/01/18 06:00 08/01/18 06:00 08/01/18 06:00 08/01/18 10:10 08/01/18 06:00 Intake and Output: 08/01/18 08/01/18 06:59 18:59 Intake Total 3020 240 Balance 3020 240 - Medications Medications: Current Medications Acetaminophen (Tylenol 325mg Tab) 650 mg PO Q6 PRN PRN Reason: TEMP>=99.5F Acetaminophen (Tylenol 650 Mg Supp) 650 mg RC Q6H PRN PRN Reason: TEMP>=99.5F Atorvastatin Calcium (Lipitor) 40 mg PO DIN [facility] Last Admin: 07/31/18 18:04 Dose: 40 mg Docusate Sodium (Colace) 100 mg PO TID [facility] Last Admin: 08/01/18 10:08 Dose: 100 mg Enoxaparin Sodium (Lovenox) 40 mg SC DAILY [facility]; Protocol Last Admin: 08/01/18 10:07 Dose: 40 mg Ergocalciferol (Drisdol 50,000 Intl Units Cap) 1 cap PO Q7D [facility] Last Admin: 07/28/18 20:16 Dose: 1 cap Hydralazine HCl (Apresoline) 10 mg PO Q6H PRN PRN Reason: SBP>=170MMHG &/OR DBP>=95MMHG Lactated Ringer's (Lactated Ringer's) 1,000 mls @ 100 mls/hr IV .Q10H [facility] Last Admin: 08/01/18 00:00 Dose: 100 mls/hr Insulin Human Lispro (Humalog Med) 0 units SC AC [facility]; Protocol Last Admin: 08/01/18 08:33 Dose: 1 units Insulin Human NPH (Humulin N) 10 units SC ACB [facility] Last Admin: 07/31/18 09:17 Dose: 10 units Insulin Human NPH (Humulin N) 5 units SC DAILY@1745 [facility] Last Admin: 07/31/18 18:07 Dose: 5 units Losartan Potassium (Cozaar) 50 mg PO DAILY [facility] Last Admin: 08/01/18 10:10 Dose: 50 mg Mupirocin (Bactroban Ointment) 1 gm TOP DAILY [facility] Last Admin: 08/01/18 10:11 Dose: 1 applic Ondansetron HCl (Zofran Inj) 4 mg IVP Q4H PRN PRN Reason: Nausea/Vomiting Pantoprazole Sodium (Protonix Ec Tab) 40 mg PO 0600 [facility] Last Admin: 08/01/18 06:29 Dose: 40 mg - Labs Labs: 07/31/18 06:40 07/31/18 06:40 PT 11.8 SECONDS (9.4-12.5) 07/28/18 13:45 INR 1.06 07/28/18 13:45 APTT 33.0 Seconds (26.9-38.3) 07/28/18 13:45 - Constitutional Appears: Non-toxic, No Acute Distress - Extremities Exam Additional comments: B/L lower extremity focused exam: Vascular: DP/PT are 1/4 b/l, Cap refill < 3 seconds to all digits, Temp gradient warm to warm from proximal to distal, no edema appreciated to b/l extremities. Ortho: MMT 5/5 in all compartments, no pain with palpation of ulceration sites Neuro: Gross sensation intact, protective sensation diminished. Derm: RLE: Ulceration noted to plantar aspect of 2nd MTPJ measuring approximately 1.5 x 1.5 x.3 cm with granular base. Hyperkeratotic border with xerosis appreciated. No drainage, no purulence, no undermining, no tracking, no probe to bone appreciated. Additional ulceration appreciated to dorsal aspect of forefoot measuring approximately 1.5 x 1 x .1 cm with fibrotic base. No drainage, no purulence, no undermining, no tunneling, no tracking appreciate. Mild erythema noted enid-wound LLE: Ulceration noted to plantar aspect of 2nd digit measuring approximately 1 cm x .5 cm x .2 cm with granular base. Hyperkeratotic border with xerosis appreciated. No drainage, no purulence, no tracking, no tunneling, no probe to bone. no clinical signs of infection appreciated. - Neurological Exam Neurological Exam: Alert, Awake, Oriented x3 - Psychiatric Exam Psychiatric exam: Normal Affect, Normal Mood Assessment and Plan - Assessment and Plan (Free Text) Assessment: 63 year old male patient with bilateral foot ulcerations.; stable Plan: Patient seen and evaluated with attending, Dr. Figueroa Afebrile R foot wound cx; MRSA, proteus L foot wound cx; MRSA, proteus, cornybacterium B/L foot xrays; no acute finding LE RODERICK/PVR; Relatively normal ORDERICK at rest, however RODERICK may be inaccurate due to calcified disease. B/L tibial disease R > L LE CT: No evidence of OM Bone Scan: + 3 phase bone scan at the level of the tarsal bones right - Clinically correlate to area of contusion on dorsal aspect of R foot, no clinical correlation to suggest OM LE US; No evidence of DVT Local wound care; b/l ulcerations cleansed with saline, and dressed with b actroban and DSD Patient to WBAT in surgical shoe (left) and offloading shoe (right) ID consulted; reccs appreciated Patient stable for podiatry standpoint, no surgical intervention at this time Upon discharge, patient to follow up in the [facility] wound [facility] with Dr. Figueroa
--- NOTE | 2018-08-01 12:06 | CP.PCM.PN ---
Subjective - Date & Time of Evaluation Date of Evaluation: 08/01/18 Time of Evaluation: 12:00 - Subjective Subjective: Josh Yeung- Internal Medicine Resident- Progress Note on Behalf of Dr. White Patient seen and examined at bedside. Resting comfortably in bed. Patient states right foot pain has significantly improved relative to baseline. Offers no new complaints at this time. Denies fever, chills, chest pain, abdominal pain, nausea, vomiting, diarrhea, constipation, and urinary symptoms. 12-point review of systems negative except as indicated in the HPI Physical Examination: - Constitutional Appears: Non-toxic, No Acute Distress - Head Exam Head Exam: ATRAUMATIC, NORMOCEPHALIC - Eye Exam Eye Exam: EOMI, Normal appearance, PERRL - ENT Exam ENT Exam: Mucous Membranes Moist - Neck Exam Neck exam: Positive for: Full Rom. Negative for: Lymphadenopathy, Tenderness - Respiratory Exam Respiratory Exam: Clear to Auscultation Bilateral, NORMAL BREATHING PATTERN. ab sent: Accessory Muscle Use, Rales, Rhonchi, Wheezes, Respiratory Distress - Cardiovascular Exam Cardiovascular Exam: REGULAR RHYTHM, +S1, +S2. absent: Tachycardia, Systolic Murmur - GI/Abdominal Exam GI & Abdominal Exam: Normal Bowel Sounds, Soft. absent: Distended, Firm, Guarding, Rebound, Rigid, Tenderness - Extremities Exam Extremities exam: Right lower extremity: Ulcer 2nd MTPJ measuring approximately 1.5 x 1.5 x.3 cm. Forefoot ulceration measuring approximately 1.5 x 1 x .1 cm Left lower extremity: ulcer 2nd digit measuring approximately 1 cm x .5 cm x .2 cm - Neurological Exam Neurological exam: Alert, CN II-XII Intact, Oriented x3 - Psychiatric Exam Psychiatric exam: Normal Affect, Normal Mood - Skin Skin Exam: Dry, Normal Color, Warm Assessment and Plan: Patient is a 63 year old male with past medical history of T2DM who was admitted for evaluation and treatment of bilateral lower extremity ulcers. Bilateral Pedal Ulcers - R foot wound cx; MRSA, proteus - L foot wound cx; MRSA, proteus, cornybacterium - 07/31/18 Bone scan- Positive 3 phase bone scan, the area of anatomic abnormalities appear at the level of the tarsal bones right foot - 08/01/18 CT right foot- No evidence of osteomyelitis. Soft tissue swelling is noted over the dorsal aspect of the foot - Right foot MRI with and without contrast ordered and pending - Infectious disease consulted- appreciate recommendations- await imaging results to r/o osteo - podiatry consulted- appreciate recommendations- dressed with bactroban and DSD, continue in surgical shoe (left) and offloading shoe (right), continue bact roban T2DM - continue insulin NPH 10 units SC ACB - continue insulin NPH SC 5 units 1745 daily - continue ISS - continue Accuchecks Hypertension - continue losartan milena and hydralazine prn Hyperlipidemia - continue statin PPX - Lovenox 40 mg SC daily - Protonix 40 mg PO daily Patient case discussed with and plan approved by attending physician, Dr. White. Objective - Vital Signs/Intake and Output Vital Signs (last 24 hours): Temp Pulse Resp BP Pulse Ox 98.2 F 74 20 134/80 98 08/01/18 06:00 08/01/18 06:00 08/01/18 06:00 08/01/18 10:10 08/01/18 06:00 Intake and Output: 08/01/18 08/01/18 06:59 18:59 Intake Total 3020 240 Balance 3020 240 - Medications Medications: Current Medications Acetaminophen (Tylenol 325mg Tab) 650 mg PO Q6 PRN PRN Reason: TEMP>=99.5F Acetaminophen (Tylenol 650 Mg Supp) 650 mg RC Q6H PRN PRN Reason: TEMP>=99.5F Atorvastatin Calcium (Lipitor) 40 mg PO DIN [facility] Last Admin: 07/31/18 18:04 Dose: 40 mg Docusate Sodium (Colace) 100 mg PO TID [facility] Last Admin: 08/01/18 10:08 Dose: 100 mg Enoxaparin Sodium (Lovenox) 40 mg SC DAILY [facility]; Protocol Last Admin: 08/01/18 10:07 Dose: 40 mg Ergocalciferol (Drisdol 50,000 Intl Units Cap) 1 cap PO Q7D [facility] Last Admin: 07/28/18 20:16 Dose: 1 cap Hydralazine HCl (Apresoline) 10 mg PO Q6H PRN PRN Reason: SBP>=170MMHG &/OR DBP>=95MMHG Lactated Ringer's (Lactated Ringer's) 1,000 mls @ 100 mls/hr IV .Q10H [facility] Last Admin: 08/01/18 00:00 Dose: 100 mls/hr Insulin Human Lispro (Humalog Med) 0 units SC AC [facility]; Protocol Last Admin: 08/01/18 08:33 Dose: 1 units Insulin Human NPH (Humulin N) 10 units SC ACB [facility] Last Admin: 07/31/18 09:17 Dose: 10 units Insulin Human NPH (Humulin N) 5 units SC DAILY@1745 [facility] Last Admin: 07/31/18 18:07 Dose: 5 units Losartan Potassium (Cozaar) 50 mg PO DAILY [facility] Last Admin: 08/01/18 10:10 Dose: 50 mg Mupirocin (Bactroban Ointment) 1 gm TOP DAILY [facility] Last Admin: 08/01/18 10:11 Dose: 1 applic Ondansetron HCl (Zofran Inj) 4 mg IVP Q4H PRN PRN Reason: Nausea/Vomiting Pantoprazole Sodium (Protonix Ec Tab) 40 mg PO 0600 [facility] Last Admin: 08/01/18 06:29 Dose: 40 mg - Labs Labs: 07/31/18 06:40 07/31/18 06:40 PT 11.8 SECONDS (9.4-12.5) 07/28/18 13:45 INR 1.06 07/28/18 13:45 APTT 33.0 Seconds (26.9-38.3) 07/28/18 13:45
[2018-08-01 12:51] LABS: BASO # 0.02 {null, K/mm3} (0.0-2.0); BASO % 0.3 % (0.0-3.0); EOS # 0.2 (0.0-0.7); EOS % 2.3 % (1.5-5.0); HEMOGLOBIN 13.5 g/dL (14.0-18.0); LYMPH # 1.6 (1.2-3.4); LYMPH % 23.4 % (22.0-35.0); MEAN CELL VOLUME 82.5 fl (80.0-105.0); MEAN CORPUSCULAR HEMOGLOBIN 27.5 pg (25.0-35.0); MEAN CORPUSCULAR HGB CONC 33.3 g/dl (31.0-37.0); MEAN PLATELET VOLUME 8.8 fl (7.0-11.0); MONO # 0.4 (0.1-0.6); MONO % 5.6 % (1.0-6.0); RBC 4.91 {null, 10^6/uL} (3.5-6.1); RED CELL DISTRIBUTION WIDTH 13.6 % (11.5-14.5); WHITE BLOOD COUNT 6.9 {null, 10^3/uL} (4.5-11.0)
--- NOTE | 2018-08-01 12:51 | DS ---
FINAL PROGRESS NOTE AND DISCHARGE SUMMARY DATE: 08/01/2018 SUBJECTIVE: The patient is in room 569, bed two. The patient overnight nurse's notes were reviewed. The patient underwent an echocardiogram yesterday and arterial Doppler results were reviewed. The patient's MRI of the right foot is still not done, the order was canceled without my knowledge and without me being notified. PHYSICAL EXAMINATION: VITAL SIGNS: T-max, the patient is afebrile, heart rate 68-74, respiration 18-20, blood pressure averaging systolic around 160, 150, 140s; diastolic averaging around 80s and 70s. O2 sat is mid to high 90%. HEENT: Head examination normocephalic, atraumatic. HEENT examination shows pinkish conjunctivae. Anicteric sclerae. No oropharyngeal lesion. No neck rigidity. CHEST: Kyphosis. LUNGS: Shows no audible crackle, rales or wheezing. CARDIOVASCULAR: S1, S2, regular rhythm. ABDOMEN: Obese. Positive bowel sound, no palpable hepatosplenomegaly. GENITALIA: Male. RECTAL: Deferred. EXTREMITIES: Shows multiple bilateral lower extremity healed skin lesions. Positive dressing of the right foot noted. MUSCULOSKELETAL: Shows an elevated body mass index. NEUROLOGIC: The patient is alert, awake, oriented x3, is able to move upper and lower extremity without assistance. Gait examination is not tested. The patient is alert, awake, responsive. No gross deficit noted. VASCULAR: Shows palpable decreased pulses. Both feet are warm to touch. DIAGNOSTICS: Since hospitalization reviewed. Echocardiogram results, preliminary reviewed which shows ejection fraction around 50% with a borderline left ventricular ejection fraction and grade 1 abnormal relaxation pattern. Arterial Doppler shows bilateral tibial disease, right more than the left. FINAL IMPRESSION AND PLAN & DISCHARGE DIAGNOSES: 1. Methicillin-resistant and Proteus mirabilis right foot diabetic ulceration. 2. Bilateral tibial occlusive disease, right more than the left. 3. Insulin-requiring uncontrolled diabetes mellitus with hemoglobin A1c of 10.9 and elevated fructosamine. 4. Hyperlipidemia. 5. Morbid obesity. 6. Hypovitaminosis D. 7. Questionable cardiomyopathy with borderline left ventricular ejection fraction of 50% and grade 1 abnormal relaxation pattern. 8. Hypertension. 9. Diabetic foot disease. Plan at this time, the patient has been requested to be evaluated by Cardiology for abnormal echocardiogram. In addition, the patient has been requested to be evaluated by Interventional Radiology for evaluation of bilateral tibial disease if any intervention is recommended or needed. At present, the patient is followed by Infectious Disease and Podiatry. The patient is still awaiting for an MRI which was ordered on the day of admission. MRI of the right foot which was ordered on the day of admission is still pending. The patient's bone scan shows increased uptake in the calcaneal and cuneiform region. At present, the patient is to be continued on all the therapeutic intervention as per the JUL of today which was reviewed. At present, we are awaiting MRI of the determine whether the patient had osteomyelitis, and depending upon the MRI results, the patient's further management will be recommended by Infectious Disease and Podiatry and Interventional Radiology. The patient will be evaluated by Cardiology for abnormal echocardiogram. The patient will be continued on all the medications as per the JUL of today including insulin sliding scale coverage and basal insulin dose. The patient will be continued on GI, DVT prophylaxis. The patient has been updated about his condition, diagnosis, test results, and recommendations at length. The patient has been advised about the details of his medical condition. At present, the patient's further management will be dependent upon the patient's clinical condition, hemodynamic status, and as per the patient's response to therapeutic intervention as per the patient's diagnostic test results and as per recommendation by all the physicians involved in the care of the patient. PATIENT CLEARED FOR DISCHARGE BY ID & PODIATRY Sánchez White MD MTDJasmine
[2018-08-01 12:58] LABS: ALB/GLOB RATIO 1.1 (1.1-1.8); ALBUMIN 4.1 g/dL (3.0-4.8); ALT/SGPT 22 U/L (7-56); AST/SGOT 28 U/L (17-59); BLOOD UREA NITROGEN 21 mg/dL (7-21); CALCIUM 9.2 mg/dL (8.4-10.5); GFR NON-AFRICAN AMERICAN > 60
--- NOTE | 2018-08-01 13:30 | PN ---
DATE: 08/01/2018 SUBJECTIVE: The patient is in bed, was seen earlier today in 569, bed 2. OBJECTIVE: VITAL SIGNS: On exam, temperature is 98, blood pressure is 160/90, respiratory rate of 20. HEENT: Unremarkable. NECK: Supple. LUNGS: Have decreased breath sounds. HEART: Normal S1, and S2. ABDOMEN: Soft. LABORATORY EXAMINATION: Reveals a white count of 7.9, hemoglobin of 13. BUN of 17, creatinine of 0.7. Urinalysis is noted. Toxicology is noted. Microbiology is noted. Review of orders reveals the patient is off of antibiotics, MRI has been ordered. The patient had a CAT scan of the lower extremity. No acute fractures, no osseous erosions, no periosteal reaction and no evidence of osteomyelitis. ASSESSMENT AND PLAN: This is a 63-year-old female with hypertension, diabetes, asthma, admitted with right foot ulcer with polymicrobial organisms colonizer, no evidence of infection of the ulcer and on the CAT scan there is no osteomyelitis. Continue wound care and vascular workup and treatment as per vascular consultation. The patient does have relatively normal ABIs . No indication for antibiotic treatment at this point. We will follow with you. Melquiades Chavez MD
--- NOTE | 2018-08-01 14:23 | PN ---
DATE: 08/01/2018 SUBJECTIVE: Mr. Damon is a noncompliant 63-year-old diabetic who has a neurotrophic ulceration with osteomyelitis involving the right second MTP joint. He also has a smaller chronic ulceration on the left second toe. I spoke with Dr. Linda and Dr Figueroa briefly. His resting ABIs are normal, but may be inaccurate due to calcified distal vessels. He does have some right tibial disease, but his ankle and metatarsal waveforms are pulsatile. The wound should be managed initially with antibiotics, offloading, and routine wound care. If the right wound deteriorates, an arteriogram can be performed to evaluate his tibial disease. Missael Kent MD MTDD
[2018-08-01 15:18] LABS: GLYCOMARK(R) 1.6 mcg/mL (7.3-36.6)
[2018-08-01 16:22] VITALS: BP 116/94; PULSE 64; TEMP 98.4; O2SAT 97
--- NOTE | 2018-08-01 17:49 | PN ---
DATE: 08/01/2018 CARDIOLOGY CONSULTATION HISTORY: The patient is a 63-year-old male who presents with foot ulcers. The patient's past medical history is free of cardiac disease. He does suffer from obesity, hypertension, borderline diabetes mellitus. He denies documented peripheral vascular disease. He denies smoking. 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 His cardiac risk factors includes hypercholesterolemia as well as diabetes mellitus. On review of systems, all free of cardiac symptomatology. PHYSICAL EXAMINATION VITAL SIGNS: Blood pressure is 134/80, heart rate is in the 70s. NECK: Negative JVD. CARDIOPULMONARY: Heart S1, S2. LUNGS: Without rales EXTREMITIES: There are multiple bandage on the lower extremities. LABORATORY DATA: Hemoglobin is 13.5. Chemistries, glucose is 248. IMPRESSION 1. Foot ulcers. 2. Diabetes mellitus. 3. Hypercholesterolemia. 4. Hypertension. 5. Obesity. PLAN: Given these findings, the patient is at high probability for CAD. After his lower extremities heal, the patient should undergo a stress test given his multiple cardiac risk factors and also given his occupation. We will arrange for an outpatient stress test next week. Missael Lorenzana MD
== END 2018-08-01 18:46 | disposition home or self-care (01) | DRG 639 ==
LOC: ED 12:37 → ERH 14:34 → 5RNO 17:00
PROVIDERS: ADMIT Internal Medicine; ATTEND Internal Medicine
PROC: 0HDMXZZ Extraction of Right Foot Skin, External Approach (ICD-10-PCS; principal; 2018-07-29)
DX: E11.621 Type 2 diabetes mellitus with foot ulcer (principal); L97.519 Non-pressure chronic ulcer of other part of right foot with unspecified severity; L97.529 Non-pressure chronic ulcer of other part of left foot with unspecified severity; E11.65 Type 2 diabetes mellitus with hyperglycemia; E55.9 Vitamin D deficiency, unspecified; B95.62 Methicillin resistant Staphylococcus aureus infection as the cause of diseases classified elsewhere; D64.9 Anemia, unspecified; E66.01 Morbid (severe) obesity due to excess calories; Z68.33 Body mass index [BMI] 33.0-33.9, adult; E78.00 Pure hypercholesterolemia, unspecified; I11.9 Hypertensive heart disease without heart failure; J45.909 Unspecified asthma, uncomplicated; M19.071 Primary osteoarthritis, right ankle and foot; M19.072 Primary osteoarthritis, left ankle and foot; K59.00 Constipation, unspecified; Z91.19 Patient's noncompliance with other medical treatment and regimen; M77.32 Calcaneal spur, left foot; M77.31 Calcaneal spur, right foot; Z79.4 Long term (current) use of insulin